=== PATIENT | female | born 1985 | race Caucasian/White ===

== ENCOUNTER 2021-01-28 15:29 | Inpatient (IN) | payer OTHER, MEDICAID, SELFPAY ==
[2021-01-28] VITALS (12 sets, daily range): BP systolic 98–120; BP diastolic 64–87; PULSE 84–132; RESP 12–16; TEMP 35.7–36.7; O2SAT 95–99
--- NOTE | 2021-01-28 15:43 | DI.US.S_ITS ---
PROCEDURE: US OB BIOPHYSICAL PROFILE INDICATIONS: no care aging size OUTSIDE/PRIOR DATING DATA: Last menstrual period (LMP): Not known. LMP-based estimated date of delivery (ALLIE): Not known. First dating scan (date and location): 01/28/2021. Estimated date of delivery (ALLIE) from first dating scan: 03/20/2021. TECHNIQUE: Real-time scanning was performed of the fetus, with image documentation and biometric measurements. Biophysical profile was also obtained. COMPARISON: None. FINDINGS: General: A single living intrauterine gestation is present. Presentation: Vertex Placenta: Placental position is anterior, without previa. Markedly heterogeneous placental echotexture is seen with multiple hypoechoic areas throughout placenta which could represent venous lakes. Amniotic fluid index: Not measured cm, normal range is 5-24 cm. heart rate: 118 beats per minute. Maternal cervical canal: Not well seen. biometrics: Biparietal diameter: 8.7 cm, 35 weeks, 0 day Head circumference: 30.6 cm, 34 weeks, 0 day Abdominal circumference: 28.1 cm, 32 weeks, 1 day Femur length: 5.7 cm, 29 weeks, 5 days Estimated gestational age from initial scan: not applicable. Composite gestational age from present scan: 32 weeks, 5 days Estimated weight and percentile: 1842 grams. Measurement variability for biometric dating: +/- 7 days from 14 weeks to 15 weeks 6 days gestation, +/- 10 days from 16 weeks to 21 weeks 6 days gestation, +/- 2 weeks from 22 weeks to 27 weeks 6 days gestation, +/- 3 weeks for 28 weeks gestation or later. weight reference: 4500 g or EFW >90/95% is considered macrosomia or large for gestational age. EFW <10% is small for gestational age. EFW 5% or less is considered intra-uterine growth restriction. IMPRESSION: 1. Single live intrauterine with fetus in vertex presentation. heart rate is 118 beats per minute. KANWAL is not measured on this study. 2. Estimated gestational age based on current study is 32 weeks, 5 days. 3. Estimated weight is 1842 grams. 4. Heterogeneous echotexture throughout placenta with internal hypoechoic areas which may represent venous Wells. No gross placenta previa or abruption. Dictated by: Bruno Rios M.D. on 01/28/2021 at 17:14 Approved by: Bruno Rios M.D. on 01/28/2021 at 17:18
[2021-01-28 16:13] LABS: Basophils Absolute Auto 100 /uL (0-100); Basophils Percent Auto 0.5 % (0-2); Eosinophils Absolute Auto 100 /uL (0-450); Eosinophils Percent Auto 0.7 % (2-4); Hematocrit 22.3 % (36-46); Hemoglobin 7.6 g/dL (12.0-16.0); Lymphocytes Absolute Auto 1300 /uL (1100-4500); Lymphocytes Percent Auto 11.9 % (25-40); Mean Corpuscular HGB Conc 34.1 % (30-36); Mean Corpuscular Hemoglobin 30.2 PG (26-34); Mean Corpuscular Volume 88.5 fL (80-100); Monocytes Absolute Auto 700 /uL (0-900); Monocytes Percent Auto 6.5 % (3-14); Neutrophils Absolute Auto 9100 /uL (1500-7000); Neutrophils Percent Auto 80.4 % (50-75); Platelet Count 52 X10^3/uL (150-400); Red Blood Cell Count 2.52 X10^6/uL (4.0-5.2); Red Cell Distribution Width 13.3 % (11.6-14.8); White Blood Cell Count 11.3 X10^3/uL (4.5-11.0)
[2021-01-28] MEDS: BETAMETHASONE 30 MG/5 ML MDV 12 MG IM (16:15)
--- NOTE | 2021-01-28 16:22 | PM.PREOP ---
Pre-operative Note COVID-19 COVID-19 status: Result pending Result date/Date tested (Pos, Neg/Pending): 01/28/21 Interval Note History & Physical reviewed/Exam performed by Physician: No Changes to H&P: No H&P completed within 30 days and has changed as indicated here:: This patient is a 35-year-old para 4 presenting at 32 weeks 6 days by her only visit, suspicion of placental abruption in the setting of methamphetamine use. Patient with category 3 tracing unresponsive to initial efforts at resuscitation, informed consent for emergent section obtained. Given maternal appearance and affect in high risk maternal status, CBC, IV access obtained prior to section, anesthesia, operating room, pediatrics teams organized in order to facilitate section and resuscitation while doing what we can to assure maternal safety. Proceeding to operating room with out type and screen as lab reports that this will take further 30 minutes. High suspicion for potential DIC given initial CBC results. Informed consent obtained as able given patient's recent use of intoxicants.
[2021-01-28] MEDS: CEFAZOLIN 2 GM/100 ML FROZ.PIGGY IV (16:55)
[2021-01-28 17:14] LABS: COVID19 - ADMIT (NP swab/PCR) Negative (Negative)
--- NOTE | 2021-01-28 17:14 | SUR.OPER ---
Supine on padded OR bed, head on pillow, arms secured on padded arm boards at <90 degrees abduction, legs uncrossed, safety belt at thigh, tape over blanket over lower legs.
[2021-01-28 17:46] LABS: Add Manual Diff / Slide Review SLIDE REVIEW
[2021-01-28 17:47] LABS: Platelet Estimate Decreased on smear; RBC Morphology Normal Morphology
[2021-01-28 17:57] LABS: UR Morphine/Opiate cutoff 300 Negative (Negative); Ur Creatinine Normal (Normal); Ur Specific Gravity Normal (Normal); Urine Amphetamines Positive (Negative); Urine Barbiturates Negative (Negative); Urine Benzodiazepines Negative (Negative); Urine Cocaine Negative (Negative); Urine MDMA Negative (Negative); Urine Methadone Negative (Negative); Urine Methamphetamines Positive (Negative); Urine Oxycodone Negative (Negative); Urine Phencyclidine Negative (Negative); Urine Tetrahydrocannabinol Negative (Negative); Urine Tricyclic Antidepressant Negative (Negative); Urine pH Normal (Normal)
[2021-01-28 18:09] LABS: Lactate Dehydrogenase 1501 U/L (313-618); Uric Acid 5.2 mg/dL (2.5-6.2)
[2021-01-28] MEDS: OXYCODONE IR 5 MG TABLET PO (18:09)
[2021-01-28 18:10] LABS: Alanine Aminotransferase 18 IU/L (<35); Albumin 2.7 g/dL (3.5-5.0); Albumin Globulin Ratio 1.1 (1.0-2.8); Alkaline Phosphatase 187 U/L (38-126); Aspartate Aminotransferase 61 IU/L (14-36); BUN Creatinine Ratio 11.9 (6-22); Bilirubin Total 1.2 mg/dL (0.2-1.3); Blood Urea Nitrogen 25 mg/dL (7-17); Calcium 8.6 mg/dL (8.4-10.2); Carbon Dioxide 21 mmol/L (22-32); Chloride 107 mmol/L (98-107); Estimated Glomerular Filt Rate 26.8 mL/min (>60); Globulin 2.5 g/dL (1.7-4.1); Glucose 88 mg/dL (70-100); HEMOLYSIS < 15 (0-50); Potassium 4.3 mmol/L (3.4-5.1); Sodium 131 mmol/L (137-145); Total Protein 5.2 g/dL (6.3-8.2)
[2021-01-28] MEDS: fentaNYL 100 MCG/2 ML INJ IV ×2 (18:10→18:15)
--- NOTE | 2021-01-28 18:21 | SUR.OPER ---
TRANSPORT TEAM TO OR 4 AT 1745.CARE OF INFANT TAKEN OVER BY THEM. INFANT DELIVERED AT 1704.
--- NOTE | 2021-01-28 19:16 | P.OP_ITS ---
Operative Date/Time/Diagnoses Date of procedure: 01/28/21 Time of procedure: 17:00 Pre-op diagnosis: placental abruption, methamphetamine hdz Post-op diagnosis: same Procedure & Clinicians Same procedure as scheduled: Yes Surgeon: Pat Conti Laboratory Technical Specialist: Gayathri Parisi Reason for Laboratory Technical Specialist: Assistance with emergent section, management of placental abruption and anticipated coagulopathy Anesthesia Type: General Operative Notes Findings: male in cephalic presentation, apgars 0, 0, and 0. Normal ovaries bilaterally. Cou[place] uterus. On entry, approx. 1000ccs of consolidated, dark clot and 2/3 abrupted anterior placenta. Minimal ongoing liquid bleeding. Specimen(s): cord blood and cord pH Intraoperative meds administered: Acetaminophen and Pitocin Applied: Catheter Estimated Blood Loss (mL): 1,500 Procedure in detail: EBL: 1500ccs Fluids: 1500ccs LR UOP: unknown, sample sent for u tox Called to bedside to assist family practitioner. This patient is a 35yo P4 with one visit 2 weeks ago, establishing dating of 32+6, with otherwise no care. Patient eventually admitted to copious methamphetamine use, reported that she had noticed contractions early this AM, absent movement for a while, increasing uterine pain x4 hours prior to presentation. On admission, cat 3 EFM with absent variability with intermittent late decelerations noted, resuscitative measures undertaken immediately. IV access obtained, type and screen, CBC obtained and sent to stat, after elevated blood pressures preeclampsia labs and coags added to order set. Patient intermittently uncooperative with IV access, rapid COVID screen, declined to produce sample for U tox, visibly intoxicated. Given course over 10 05- of admission, patient was made to organized emergency section safest method possible. Betamethasone administered, anesthesia, OR, pediatrics teams notified, 2nd large-bore IV obtained. Discussed risk of hemorrhage, infection, damage to bowel bladder, danger with future pregnancies discussed. Informed consent obtained as able. Patient joined by father of baby shortly prior to section, father of baby similarly affected. The decision was made to take the patient for section emergency as soon as a CBC and adequate IV access could be obtained to facilitate maternal safety, and to initiate a team for resuscitation and the NICU transport. Procedures: The patient was taken to the operating room where she was prepped and draped in the dorsal supine position with a leftward tilt prior to obtaining emergent general anesthesia. A Pfannenstiel skin incision was made with a scalpel and carried through to the underlying layer of fascia. The fascia was incised in the midline and the incision extended laterally bluntly. The superior aspect of this incision was grasped with Sharad clamps, elevated, and the underlying rectus muscles dissected off bluntly and with the curved Olivera scissors. Attention was then turned to the inferior aspect of this incision which, in a similar fashion, was grasped, tented up with the Sharad clamps, and the rectus muscles dissected off bluntly and with the curved Olivera scissors. The rectus muscles were then in the midline, and the peritoneum identified, tented up, and entered sharply with Metzenbaum scissors. The peritoneal incision was extended superiorly and inferiorly with good visualization of the bladder. The bladder blade was inserted and the vesicouterine peritoneum identified, grasped with pickups, and entered sharply with the Metzenbaum scissors. This incision was extended laterally, and the bladder flap created digitally. The bladder blade was then reinserted and the lower uterine segment incised in transverse fashion with the scalpel. The uterine incision was bluntly extended laterally. The bladder blade was removed, and the infant's head delivered atraumatically along with bloody amniotic fluid and copious amounts of consolidated clot. The cord was immediately clamped and cut, the handed to the waiting Pediatrics team, and the placenta removed manually. All told, approximately 1000 cc of consolidated, dark was removed along with the placenta. Notably, minimal ongoing bright red bleeding was noted. The uterus was exteriorized and cleared of all clots and debris. The uterine incision was repaired with 1-0 chromic in a running, locked fashion and a 2nd layer of the same suture was used to obtain excellent hemostasis. The uterus was returned to the abdomen, and the gutters were cleared of all clots and debris. The bladder flap was closed with 2-0 Vicryl in a running fashion, the peritoneum was closed with 3-0 Vicryl, and the fascia reapproximated with 0 Vicryl in a running fashion. The subcutaneous layer was placed with 3 0 Vicryl in an interrupted fashion and the skin was closed with 4-0 biosyn in a running fashion. Throughout, minimal bleeding was noted, though what was noted was thin and watery, concerning for DIC. Hemostasis was achieved with pressure and Bovie. Sponge lap and needle counts were correct x2. 2 g of Ancef were given at commencement of the case. The patient was taken to the recovery room in stable condition, with mild to moderate lochia and stable vitals signs. Complications: other ( rescusitation) [place] Baby 1: Gender: Male Presentation: vertex Position: Left Occiput Anterior Placental Delivery Description: Manual Removal Cord Vessel Description: 3 Vessels score (1 min): 0 score (5 min): 0 Narrative: See resuscitation note Post-operative Condition: stable Disposition: PACU Aftercare: routine postop (serial CBCs, close monitoring of VS and bleeding)
--- NOTE | 2021-01-28 19:22 | PM.OBHP.1 ---
OB HPI Date/Time Date of admission: 01/28/21 Date Patient Seen: 01/28/21 Time Patient Seen: 15:30 History of Present Condition Chief complaint: : 5 Para: 4 Estimated Date of Delivery: 03/19/21 Estimated Gestational Age (weeks): 32w6d Narrative: Carolina Sharma is a 35 year old at 32 weeks and 6 days gestation presenting with contractions since 5 this morning. Patient has not had care with the exception of one ultrasound in [place] 2 weeks ago which provided in ALLIE of 03/19/21. She is unsure when she last felt the baby move. This morning she was feeling painful so took a bath. Contractions subsided then picked up throughout the rest of the day. Denies leaking or bleeding. Denies headache or edema. Denies drug use however states she use drugs when she was in high school. Currently uses marijuana and cigarettes only. OB history: 5 prior vaginal deliveries all at term. She states she was induced for preeclampsia with one of them. Indications Operative indications ( section): distress History of Present care: limited care (One visit with ultrasound 2 weeks ago) Dating criteria: based on 3rd trimester US only Obstetrical complications: none Medical complications: none Prior (ies) History: 4 prior spontaneous vaginal deliveries at term Evaluation Evaluation Baseline heart rate: 120 Variability: Absent (0-2) monitor accelerations: Absent Monitor Decelerations: Late Contraction Frequency (minutes): 2 Uterine Contraction Intensity: Mild Category of Tracing: Non-reactive Status: Category lll Cervical dilation (cm): 2 Cervical effacement (%): 50 station: -1 Laboratory results: Laboratory Tests 01/28/21 01/28/21 01/28/21 15:47 15:50 15:50 WBC 11.3 H RBC 2.52 L Hgb 7.6 L Hct 22.3 L MCV 88.5 MCH 30.2 MCHC 34.1 RDW 13.3 Plt Count 52 L Neut % (Auto) 80.4 H Lymph % (Auto) 11.9 L Meeker % (Auto) 6.5 Eos % (Auto) 0.7 L Baso % (Auto) 0.5 Neut # (Auto) 9100 H Lymph # (Auto) 1300 Meeker # (Auto) 700 Eos # (Auto) 100 Baso # (Auto) 100 Platelet Estimate Decreased on smear RBC Morphology Normal morphology Sodium 131 L Potassium 4.3 Chloride 107 Carbon Dioxide 21 L BUN 25 H Creatinine 2.10 H Estimated GFR 26.8 L BUN/Creatinine Ratio 11.9 Glucose 88 Uric Acid Calcium 8.6 Total Bilirubin 1.2 AST 61 H ALT 18 Alkaline Phosphatase 187 H Lactate Dehydrogenase Total Protein 5.2 L Albumin 2.7 L Globulin 2.5 Albumin/Globulin Ratio 1.1 U Opiates 300ng/mL cut Ur Oxycodone Screen Urine Methadone Screen Ur Barbiturates Screen U Tricyclic Antidepress Ur Phencyclidine Scrn Ur Amphetamines Screen U Methamphetamines Scrn Ur MDMA Scrn (Ecstasy) U Benzodiazepines Scrn Urine Cocaine Screen U Marijuana (THC) Screen SARS-CoV-2 (PCR) Negative Blood Type Antibody Screen Antibody Identification Crossmatch 01/28/21 01/28/21 01/28/21 15:50 15:55 17:35 WBC RBC Hgb Hct MCV MCH MCHC RDW Plt Count Neut % (Auto) Lymph % (Auto) Meeker % (Auto) Eos % (Auto) Baso % (Auto) Neut # (Auto) Lymph # (Auto) Meeker # (Auto) Eos # (Auto) Baso # (Auto) Platelet Estimate RBC Morphology Sodium Potassium Chloride Carbon Dioxide BUN Creatinine Estimated GFR BUN/Creatinine Ratio Glucose Uric Acid 5.2 Calcium Total Bilirubin AST ALT Alkaline Phosphatase Lactate Dehydrogenase 1501 H Total Protein Albumin Globulin Albumin/Globulin Ratio U Opiates 300ng/mL cut Negative Ur Oxycodone Screen Negative Urine Methadone Screen Negative Ur Barbiturates Screen Negative U Tricyclic Antidepress Negative Ur Phencyclidine Scrn Negative Ur Amphetamines Screen Positive H U Methamphetamines Scrn Positive H Ur MDMA Scrn (Ecstasy) Negative U Benzodiazepines Scrn Negative Urine Cocaine Screen Negative U Marijuana (THC) Screen Negative SARS-CoV-2 (PCR) Blood Type A Negative Antibody Screen Positive Antibody Identification Anti-D Crossmatch See Detail [facility] Medical History AMA (advanced maternal age) multigravida 35+ Anemia Anxiety Blood type, Rh negative Migraine Ovarian cyst Pre-eclampsia (~2004) SAB (spontaneous ) Smoker (spontaneous vaginal delivery) (~06/21/05) (spontaneous vaginal delivery) (~08/10/10) (spontaneous vaginal delivery) (~09/13/14) (spontaneous vaginal delivery) (~06/27/16) Surgical History [place] teeth extracted Family History Mother Cancer Breast cancer Father Hypertension Migraine Grandmother Cancer Breast cancer Grandfather Cancer Lung cancer Grandmother Myocardial infarction Acute alcohol abuse Grandfather Old age Social History marital status: unmarried,living together number of children: 4 household members: significant other, children and other lives independently: No pets and animals: Yes (X 1 cat : mostly outdoors) occupational status: employed current occupational exposures/hazards: Yes special soren needs: No Smoking Status: Current every day smoker Tobacco: How many years used: 20 quit status: considering quitting second hand exposure: Yes alcohol intake: former substance use type: does not use Meds Home Medications and Allergies Home Medications Medication Instructions Recorded Confirmed Type prenat.vits,jose,thn-cwil-ozytc 1 tab PO DAILY 11/14/20 01/28/21 History Allergies Allergy/AdvReac Type Severity Reaction Status Date / Time No Known Drug Allergies Allergy Verified 11/14/20 15:21 Exam Vital Signs (past 8 hours): - 01/28/21 17:50 01/28/21 17:55 01/28/21 18:00 Temperature 96.8 F L 96.8 F L 97.0 F L Pulse Rate 89 86 84 Respiratory Rate 12 14 12 Blood Pressure 109/67 120/87 114/82 Pulse Oximetry 99 99 99 01/28/21 18:05 01/28/21 18:30 01/28/21 18:37 Temperature 97 F L 97.0 F L Pulse Rate 101 H 120 H 132 H Respiratory Rate 14 12 13 Blood Pressure 98/64 116/87 117/83 Pulse Oximetry 98 98 98 01/28/21 18:40 Temperature 97.0 F L Pulse Rate 110 H Respiratory Rate 16 Blood Pressure 118/85 Pulse Oximetry 95 Oxygen Delivery Method Nasal Cannula Oxygen Flow Rate 1 Narrative Exam Narrative: Initial vitals in the center with temperature 35.9? blood pressure 158/103 heart rate 84, repeat blood pressure 155/102 with heart rate of 83 Const General: acute distress (Appears uncomfortable lying in bed) and intoxicated appearing Nutritional Appearance: average body habitus HENIA Head: normal to inspection Ears: hearing grossly normal bilaterally Eyes General: appearance normal, both eyes and all related structures Neck Neck: normal visual inspection Resp Effort & Inspection: normal respiratory effort Auscultation: clear to auscultation bilaterally Cardio Rate: regular rate Rhythm: regular rhythm Heart Sounds: no murmurs GI Other: Gravid External Female Exam: normal external appearance Back/Spine/Pelvis Back: normal to inspection Skin General: no rashes or lesions noted Extrem General: normal to inspection and no pedal edema Objective Labs Result Diagrams: 01/28/21 15:50 01/28/21 15:50 Labs: Laboratory Results - last 24 hr 01/28/21 01/28/21 01/28/21 15:47 15:50 15:50 WBC 11.3 H RBC 2.52 L Hgb 7.6 L Hct 22.3 L MCV 88.5 MCH 30.2 MCHC 34.1 RDW 13.3 Plt Count 52 L Neut % (Auto) 80.4 H Lymph % (Auto) 11.9 L Meeker % (Auto) 6.5 Eos % (Auto) 0.7 L Baso % (Auto) 0.5 Neut # (Auto) 9100 H Lymph # (Auto) 1300 [place] # (Auto) 700 Eos # (Auto) 100 Baso # (Auto) 100 Platelet Estimate Decreased on smear RBC Morphology Normal morphology Sodium 131 L Potassium 4.3 Chloride 107 Carbon Dioxide 21 L BUN 25 H Creatinine 2.10 H Estimated GFR 26.8 L BUN/Creatinine Ratio 11.9 Glucose 88 Uric Acid Calcium 8.6 Total Bilirubin 1.2 AST 61 H ALT 18 Alkaline Phosphatase 187 H Lactate Dehydrogenase Total Protein 5.2 L Albumin 2.7 L Globulin 2.5 Albumin/Globulin Ratio 1.1 U Opiates 300ng/mL cut Ur Oxycodone Screen Urine Methadone Screen Ur Barbiturates Screen U Tricyclic Antidepress Ur Phencyclidine Scrn Ur Amphetamines Screen U Methamphetamines Scrn Ur MDMA Scrn (Ecstasy) U Benzodiazepines Scrn Urine Cocaine Screen U Marijuana (THC) Screen SARS-CoV-2 (PCR) Negative Blood Type Antibody Screen Antibody Identification Crossmatch 01/28/21 01/28/21 01/28/21 15:50 15:55 17:35 WBC RBC Hgb Hct MCV MCH MCHC RDW Plt Count Neut % (Auto) Lymph % (Auto) Meeker % (Auto) Eos % (Auto) Baso % (Auto) Neut # (Auto) Lymph # (Auto) [place] # (Auto) Eos # (Auto) Baso # (Auto) Platelet Estimate RBC Morphology Sodium Potassium Chloride Carbon Dioxide BUN Creatinine Estimated GFR BUN/Creatinine Ratio Glucose Uric Acid 5.2 Calcium Total Bilirubin AST ALT Alkaline Phosphatase Lactate Dehydrogenase 1501 H Total Protein Albumin Globulin Albumin/Globulin Ratio U Opiates 300ng/mL cut Negative Ur Oxycodone Screen Negative Urine Methadone Screen Negative Ur Barbiturates Screen Negative U Tricyclic Antidepress Negative Ur Phencyclidine Scrn Negative Ur Amphetamines Screen Positive H U Methamphetamines Scrn Positive H Ur MDMA Scrn (Ecstasy) Negative U Benzodiazepines Scrn Negative Urine Cocaine Screen Negative U Marijuana (THC) Screen Negative SARS-CoV-2 (PCR) Blood Type A Negative Antibody Screen Positive Antibody Identification Anti-D Crossmatch See Detail Assessment and Plan Assessment and Plan Assessment and Plan narrative: 35-year-old at 32 weeks and 6 days gestation in labor and obviously under the influence of substances. She has had one visit this which established her due date of March 19 but otherwise has not had care. Denies recent drug use. Upon arrival to the center she was found to be 2 cm dilated with frequent contractions and a category [address] Conti, Seasonal Package Handler, was readily available in the center to provide consultation. Patient was given a fluid bolus without improvement in status. She was then given betamethasone and counseled on the need for an emergency due to distress. Dr. Conti performed a bedside ultrasound which showed vertex presentation and concern for contain placental abruption. Dr. Conti consented the patient for section. labs were drawn. GBS pending, COVID pending. Patient was found to be severely anemic and thrombocytopenic raising concern for HELLP syndrome given elevated blood pressures. Patient will be taken for emergent due to distress and placental abruption. Unfortunately anesthesia will be with general anesthesia due to thrombocytopenia. UDS will be collected with catheter placement in the OR. NICU transfer team has been notified and is on their way. Pediatrics will be at the delivery.
[2021-01-28 20:50] LABS: Strep Grp B PCR NEG for Grp B Strep
[2021-01-28 21:01] LABS: Add Manual Diff / Slide Review NO; Basophils Absolute Auto 0 /uL (0-100); Basophils Percent Auto 0.3 % (0-2); Eosinophils Absolute Auto 0 /uL (0-450); Eosinophils Percent Auto 0.2 % (2-4); Lymphocytes Absolute Auto 900 /uL (1100-4500); Lymphocytes Percent Auto 6.5 % (25-40); Mean Corpuscular HGB Conc 34.8 % (30-36); Mean Corpuscular Hemoglobin 30.6 PG (26-34); Monocytes Absolute Auto 200 /uL (0-900); Monocytes Percent Auto 1.6 % (3-14); Neutrophils Absolute Auto 13100 /uL (1500-7000); Neutrophils Percent Auto 91.4 % (50-75); Platelet Count 45 X10^3/uL (150-400); Red Blood Cell Count 1.75 X10^6/uL (4.0-5.2); Red Cell Distribution Width 13.1 % (11.6-14.8); White Blood Cell Count 14.3 X10^3/uL (4.5-11.0)
[2021-01-28 21:04] LABS: Hepatitis B Surface Antigen NEGATIVE s/c (NEGATIVE)
[2021-01-28 21:07] LABS: Hematocrit 15.4 % (36-46); Hemoglobin 5.3 g/dL (12.0-16.0)
[2021-01-28 21:13] LABS: Alanine Aminotransferase 15 IU/L (<35); Alkaline Phosphatase 139 U/L (38-126); Aspartate Aminotransferase 40 IU/L (14-36); BUN Creatinine Ratio 11.9 (6-22); Bilirubin Total 0.3 mg/dL (0.2-1.3); Blood Urea Nitrogen 28 mg/dL (7-17); Calcium 7.8 mg/dL (8.4-10.2); Carbon Dioxide 21 mmol/L (22-32); Chloride 107 mmol/L (98-107); Estimated Glomerular Filt Rate 23.5 mL/min (>60); Globulin 2.1 g/dL (1.7-4.1); Glucose 122 mg/dL (70-100); HEMOLYSIS < 15 (0-50); Potassium 4.8 mmol/L (3.4-5.1); Sodium 131 mmol/L (137-145); Total Protein 4.1 g/dL (6.3-8.2)
[2021-01-28 21:20] LABS: INR 1.2 (0.9-1.3); Prothrombin Time 13.3 SECONDS (10.1-12.7)
[2021-01-28 21:23] LABS: PTT Partial Thromboplastin Tim 28 SECONDS (26.4-36.2)
[2021-01-28 21:25] LABS: HIV 1 & 2 Ab/Ag 4th Gen Combo NEGATIVE (NEGATIVE); Hep C Virus Ab w/Reflex Quant NEGATIVE s/c (NEGATIVE)
--- NOTE | 2021-01-28 21:41 | P.PNOB_ITS ---
Subjective - OB Subjective Patient comments: incisional pain Date Patient Seen: 01/28/21 Time Patient Seen: 21:41 Interval history: This patient is 3 hours s/p primary section under general anesthesia in the setting of placental abruption, cat 3 EFM, no care, and recent methamphetamine use. The patient's affect is largely similar to preoperatively, and she is able to answer questions coherently and responds appropriately to stimuli. Discussed with patient expected hgb drop postoperatively, patient previously consented to blood transfusion which will be initiated now. Exam Vital Signs (past 8 hours): - 01/28/21 17:50 01/28/21 17:55 01/28/21 18:00 Temperature 96.8 F L 96.8 F L 97.0 F L Pulse Rate 89 86 84 Respiratory Rate 12 14 12 Blood Pressure 109/67 120/87 114/82 Pulse Oximetry 99 99 99 01/28/21 18:05 01/28/21 18:30 01/28/21 18:37 Temperature 97 F L 97.0 F L Pulse Rate 101 H 120 H 132 H Respiratory Rate 14 12 13 Blood Pressure 98/64 116/87 117/83 Pulse Oximetry 98 98 98 01/28/21 18:40 01/28/21 21:40 Temperature 97.0 F L 96.2 F L Pulse Rate 110 H 100 H Respiratory Rate 16 14 Blood Pressure 118/85 102/76 Pulse Oximetry 95 Oxygen Delivery Method Nasal Cannula Oxygen Flow Rate 1 Const General: cooperative Orientation: alert and oriented x3 Other: pale GI Inspection: non-distended Palpation: soft and tender (mild) Other: lochia mild Skin General: no rashes or lesions noted Extrem General: normal to inspection Objective Labs Result Diagrams: 01/29/21 09:35 01/29/21 09:35 Labs: Laboratory Results - last 24 hr 01/28/21 01/28/21 01/28/21 15:47 15:50 15:50 WBC 11.3 H RBC 2.52 L Hgb 7.6 L Hct 22.3 L MCV 88.5 MCH 30.2 MCHC 34.1 RDW 13.3 Plt Count 52 L Neut % (Auto) 80.4 H Lymph % (Auto) 11.9 L [place] % (Auto) 6.5 Eos % (Auto) 0.7 L Baso % (Auto) 0.5 Neut # (Auto) 9100 H Lymph # (Auto) 1300 [place] # (Auto) 700 Eos # (Auto) 100 Baso # (Auto) 100 Platelet Estimate Decreased on smear RBC Morphology Normal morphology Sodium 131 L Potassium 4.3 Chloride 107 Carbon Dioxide 21 L BUN 25 H Creatinine 2.10 H Estimated GFR 26.8 L BUN/Creatinine Ratio 11.9 Glucose 88 Uric Acid Calcium 8.6 Total Bilirubin 1.2 AST 61 H ALT 18 Alkaline Phosphatase 187 H Lactate Dehydrogenase Total Protein 5.2 L Albumin 2.7 L Globulin 2.5 Albumin/Globulin Ratio 1.1 U Opiates 300ng/mL cut Ur Oxycodone Screen Urine Methadone Screen Ur Barbiturates Screen U Tricyclic Antidepress Ur Phencyclidine Scrn Ur Amphetamines Screen U Methamphetamines Scrn Ur MDMA Scrn (Ecstasy) U Benzodiazepines Scrn Urine Cocaine Screen U Marijuana (THC) Screen SARS-CoV-2 (PCR) Negative Hep Bs Antigen Hepatitis C Antibody HIV 1&2 Ab/P24 Ag 4thGn Rubella Antibody Group B Strep (PCR) Blood Type Antibody Screen Antibody Identification Crossmatch 01/28/21 01/28/21 01/28/21 15:50 15:50 15:50 WBC RBC Hgb Hct MCV MCH MCHC RDW Plt Count Neut % (Auto) Lymph % (Auto) [place] % (Auto) Eos % (Auto) Baso % (Auto) Neut # (Auto) Lymph # (Auto) [place] # (Auto) Eos # (Auto) Baso # (Auto) Platelet Estimate RBC Morphology Sodium Potassium Chloride Carbon Dioxide BUN Creatinine Estimated GFR BUN/Creatinine Ratio Glucose Uric Acid 5.2 Calcium Total Bilirubin AST ALT Alkaline Phosphatase Lactate Dehydrogenase 1501 H Total Protein Albumin Globulin Albumin/Globulin Ratio U Opiates 300ng/mL cut Ur Oxycodone Screen Urine Methadone Screen Ur Barbiturates Screen U Tricyclic Antidepress Ur Phencyclidine Scrn Ur Amphetamines Screen U Methamphetamines Scrn Ur MDMA Scrn (Ecstasy) U Benzodiazepines Scrn Urine Cocaine Screen U Marijuana (THC) Screen SARS-CoV-2 (PCR) Hep Bs Antigen Negative Hepatitis C Antibody Negative HIV 1&2 Ab/P24 Ag 4thGn Negative Rubella Antibody 38.0 Group B Strep (PCR) Neg for grp b strep Blood Type Antibody Screen Antibody Identification Crossmatch 01/28/21 01/28/21 01/28/21 15:55 17:35 20:34 WBC 14.3 H RBC 1.75 L Hgb 5.3 L* Hct 15.4 L* MCV 88.0 MCH 30.6 MCHC 34.8 RDW 13.1 Plt Count 45 L Neut % (Auto) 91.4 H Lymph % (Auto) 6.5 L [place] % (Auto) 1.6 L Eos % (Auto) 0.2 L Baso % (Auto) 0.3 Neut # (Auto) 68443 H Lymph # (Auto) 900 L [place] # (Auto) 200 Eos # (Auto) 0 Baso # (Auto) 0 Platelet Estimate RBC Morphology Sodium Potassium Chloride Carbon Dioxide BUN Creatinine Estimated GFR BUN/Creatinine Ratio Glucose Uric Acid Calcium Total Bilirubin AST ALT Alkaline Phosphatase Lactate Dehydrogenase Total Protein Albumin Globulin Albumin/Globulin Ratio U Opiates 300ng/mL cut Negative Ur Oxycodone Screen Negative Urine Methadone Screen Negative Ur Barbiturates Screen Negative U Tricyclic Antidepress Negative Ur Phencyclidine Scrn Negative Ur Amphetamines Screen Positive H U Methamphetamines Scrn Positive H Ur MDMA Scrn (Ecstasy) Negative U Benzodiazepines Scrn Negative Urine Cocaine Screen Negative U Marijuana (THC) Screen Negative SARS-CoV-2 (PCR) Hep Bs Antigen Hepatitis C Antibody HIV 1&2 Ab/P24 Ag 4thGn Rubella Antibody Group B Strep (PCR) Blood Type A Negative Antibody Screen Positive Antibody Identification Anti-D Crossmatch See Detail 01/28/21 20:34 WBC RBC Hgb Hct MCV MCH MCHC RDW Plt Count Neut % (Auto) Lymph % (Auto) [place] % (Auto) Eos % (Auto) Baso % (Auto) Neut # (Auto) Lymph # (Auto) [place] # (Auto) Eos # (Auto) Baso # (Auto) Platelet Estimate RBC Morphology Sodium 131 L Potassium 4.8 Chloride 107 Carbon Dioxide 21 L BUN 28 H Creatinine 2.35 H Estimated GFR 23.5 L BUN/Creatinine Ratio 11.9 Glucose 122 H Uric Acid Calcium 7.8 L Total Bilirubin 0.3 AST 40 H ALT 15 Alkaline Phosphatase 139 H Lactate Dehydrogenase Total Protein 4.1 L Albumin 2.0 L Globulin 2.1 Albumin/Globulin Ratio 1.0 U Opiates 300ng/mL cut Ur Oxycodone Screen Urine Methadone Screen Ur Barbiturates Screen U Tricyclic Antidepress Ur Phencyclidine Scrn Ur Amphetamines Screen U Methamphetamines Scrn Ur MDMA Scrn (Ecstasy) U Benzodiazepines Scrn Urine Cocaine Screen U Marijuana (THC) Screen SARS-CoV-2 (PCR) Hep Bs Antigen Hepatitis C Antibody HIV 1&2 Ab/P24 Ag 4thGn Rubella Antibody Group B Strep (PCR) Blood Type Antibody Screen Antibody Identification Crossmatch Assessment & Plan Plan day: 0 Comments: This patient is POD#0 s/p pCS under general in the setting of 32 weeks gestation, no care, methamphetamine use, and placental abruption. Patient had preoperatively elevated blood pressures in the setting of methamphetamine use and pain, lab findings concerning for HELLP but unclear given methamphetamine use and effects on labs as well as abruption that had clinically been present for some time. Patient for transfusion of 2x pRBCs now, for dexamethasone per protocol used for low platelets. Coags still pending as not drawn by lab prior to CS, but as vitals and bleeding remain stable and HR is improving, will continue close monitoring rather than FFP or platelet transfusion at this time. For labs q1 hr, ongoing IV fluids, close monitoring of urine output and vitals signs. - 2x pRBCs now - q6 hrs labs- CBC and CMP - dexamethasone IV: 15 mg now, 15 mg in 12 hours, then 10mg q12 hrs x2 doses. - vitals q1 hr - ongoing IV fluids Time Spent With Patient Time: Total time spent is greater than 50% in coordination of care (as documented) at patient's floor/unit and/or counseling patient: Time with patient: 25 - 35 minutes
[2021-01-28] MEDS: SODIUM CHLORIDE 0.9% 1,000 ML 100 ML IV (21:45)
[2021-01-28 21:52] LABS: Fibrinogen 74 mg/dL (211-428)
[2021-01-29] VITALS (10 sets, daily range): BP systolic 118–146; BP diastolic 84–101; PULSE 76–98; RESP 14–16; TEMP 35.9–36.6
[2021-01-29] MEDS: OXYCODONE IR 10 MG TABLET PO ×4 (01:11→19:53)
[2021-01-29 05:00] LABS: Basophils Absolute Auto 0 /uL (0-100); Basophils Percent Auto 0.1 % (0-2); Eosinophils Absolute Auto 0 /uL (0-450); Hemoglobin 8.4 g/dL (12.0-16.0); Lymphocytes Absolute Auto 1300 /uL (1100-4500); Lymphocytes Percent Auto 7.5 % (25-40); Mean Corpuscular HGB Conc 33.9 % (30-36); Mean Corpuscular Hemoglobin 29.7 PG (26-34); Mean Corpuscular Volume 87.6 fL (80-100); Monocytes Absolute Auto 300 /uL (0-900); Monocytes Percent Auto 1.7 % (3-14); Neutrophils Absolute Auto 15000 /uL (1500-7000); Neutrophils Percent Auto 90.7 % (50-75); Red Blood Cell Count 2.81 X10^6/uL (4.0-5.2); Red Cell Distribution Width 14.4 % (11.6-14.8); White Blood Cell Count 16.6 X10^3/uL (4.5-11.0)
[2021-01-29 05:06] LABS: Alanine Aminotransferase 14 IU/L (<35); Albumin 2.1 g/dL (3.5-5.0); Alkaline Phosphatase 109 U/L (38-126); Aspartate Aminotransferase 38 IU/L (14-36); BUN Creatinine Ratio 12.2 (6-22); Bilirubin Total 0.4 mg/dL (0.2-1.3); Blood Urea Nitrogen 35 mg/dL (7-17); Calcium 7.4 mg/dL (8.4-10.2); Carbon Dioxide 21 mmol/L (22-32); Chloride 106 mmol/L (98-107); Estimated Glomerular Filt Rate 18.7 mL/min (>60); Globulin 2.2 g/dL (1.7-4.1); Glucose 101 mg/dL (70-100); HEMOLYSIS < 15 (0-50); Potassium 4.8 mmol/L (3.4-5.1); Sodium 131 mmol/L (137-145); Total Protein 4.3 g/dL (6.3-8.2)
[2021-01-29 05:11] LABS: Hematocrit 24.7 % (36-46)
[2021-01-29 05:12] LABS: Platelet Count 43 X10^3/uL (150-400)
[2021-01-29 05:13] LABS: Add Manual Diff / Slide Review SLIDE REVIEW
[2021-01-29 05:31] LABS: Fibrinogen 184 mg/dL (211-428)
[2021-01-29] MEDS: LACTATED RINGERS 1,000 ML 100 ML IV ×2 (06:07→07:09)
[2021-01-29 07:23] LABS: Appearance Urine UA SL CLOUDY; Bilirubin Urine UA NEGATIVE (NEGATIVE); Color Urine UA YELLOW; Glucose Urine UA NEGATIVE (Negative); Ketones Urine UA NEGATIVE (NEGATIVE); Leukocyte Esterase Urine UA NEGATIVE (NEGATIVE); Nitrite Urine UA POSITIVE (Negative); Occult Blood Urine UA 3+ (Negative); Protein Urine UA 2+ (Negative); Specific Gravity Urine UA 1.025 (1.000-1.035); Urobilinogen Urine UA 0.2 E.U./dL (0.2)
--- NOTE | 2021-01-29 07:25 | PM.OBPN.1 ---
Subjective - OB Subjective Patient comments: incisional pain baby status: NICU (on vent, unresponsive to stimuli, no respitory effort) Narrative: Patient complains of soreness all over, especially her back. Some incisional pain. Denies headache or vision changes. She received 2 units of PRBCs overnight. Fluids were put on hold during blood transfusion due to one IV. UOP overnight 100 ml of dark urine. Blood pressures mildly elevated 100-140s/70-100s however patient asymptomatic as above. Patient admits to meth use in the days leading up to labor. She states she does not use all the time and not around her kids. Denies using drugs in her prior pregnancies. Her current boyfriend does not know about her drug use and she does not want him to know. Baby remains intubated at [facility] with no neurologic response. Date Patient Seen: 01/29/21 Time Patient Seen: 06:50 Exam Vital Signs (past 8 hours): - 01/29/21 00:22 01/29/21 00:45 01/29/21 00:52 Temperature 96.6 F L 98 F 97 F L Pulse Rate 92 H 90 90 Respiratory Rate 14 15 15 Blood Pressure 124/93 H 127/93 H 127/94 H 01/29/21 01:05 01/29/21 01:08 01/29/21 03:28 Temperature 96.6 F L 96.6 F L 97.1 F L Pulse Rate 76 92 H 90 Respiratory Rate 14 15 16 Blood Pressure 143/101 H 137/98 H 138/100 H Oxygen Delivery Method Nasal Cannula Oxygen Flow Rate 1 Narrative Exam Narrative: General: Awake and alert, no acute distress. Dry lips and dry mucous membranes. HEENT: NCAT, EOMI, moist oral mucosa CV: Regular rate and rhythm, no murmurs, rubs or gallops Lungs: CTAB, no wheezes, rales, or rhonchi Abdomen: Aquacel dressing with minimal drainage. Soft, nontender; bowel tones active; uterus firm 1 cm below umbilicus. Extremities: Warm, no edema bilaterally, 2+ pedal pulses bilaterally Neuro: 2/4 patellar reflexes bilaterally Objective Labs Result Diagrams: 01/29/21 04:25 01/29/21 04:25 Labs: Laboratory Results - last 24 hr 01/28/21 01/28/21 01/28/21 15:47 15:50 15:50 WBC 11.3 H RBC 2.52 L Hgb 7.6 L Hct 22.3 L MCV 88.5 MCH 30.2 MCHC 34.1 RDW 13.3 Plt Count 52 L Neut % (Auto) 80.4 H Lymph % (Auto) 11.9 L [place] % (Auto) 6.5 Eos % (Auto) 0.7 L Baso % (Auto) 0.5 Neut # (Auto) 9100 H Lymph # (Auto) 1300 [place] # (Auto) 700 Eos # (Auto) 100 Baso # (Auto) 100 Platelet Estimate Decreased on smear RBC Morphology Normal morphology PT INR APTT Fibrinogen Sodium 131 L Potassium 4.3 Chloride 107 Carbon Dioxide 21 L BUN 25 H Creatinine 2.10 H Estimated GFR 26.8 L BUN/Creatinine Ratio 11.9 Glucose 88 Uric Acid Calcium 8.6 Total Bilirubin 1.2 AST 61 H ALT 18 Alkaline Phosphatase 187 H Lactate Dehydrogenase Total Protein 5.2 L Albumin 2.7 L Globulin 2.5 Albumin/Globulin Ratio 1.1 U Opiates 300ng/mL cut Ur Oxycodone Screen Urine Methadone Screen Ur Barbiturates Screen U Tricyclic Antidepress Ur Phencyclidine Scrn Ur Amphetamines Screen U Methamphetamines Scrn Ur MDMA Scrn (Ecstasy) U Benzodiazepines Scrn Urine Cocaine Screen U Marijuana (THC) Screen SARS-CoV-2 (PCR) Negative Hep Bs Antigen Hepatitis C Antibody HIV 1&2 Ab/P24 Ag 4thGn Rubella Antibody Group B Strep (PCR) Blood Type Antibody Screen Antibody Identification Crossmatch 01/28/21 01/28/21 01/28/21 15:50 15:50 15:50 WBC RBC Hgb Hct MCV MCH MCHC RDW Plt Count Neut % (Auto) Lymph % (Auto) [place] % (Auto) Eos % (Auto) Baso % (Auto) Neut # (Auto) Lymph # (Auto) [place] # (Auto) Eos # (Auto) Baso # (Auto) Platelet Estimate RBC Morphology PT INR APTT Fibrinogen Sodium Potassium Chloride Carbon Dioxide BUN Creatinine Estimated GFR BUN/Creatinine Ratio Glucose Uric Acid 5.2 Calcium Total Bilirubin AST ALT Alkaline Phosphatase Lactate Dehydrogenase 1501 H Total Protein Albumin Globulin Albumin/Globulin Ratio U Opiates 300ng/mL cut Ur Oxycodone Screen Urine Methadone Screen Ur Barbiturates Screen U Tricyclic Antidepress Ur Phencyclidine Scrn Ur Amphetamines Screen U Methamphetamines Scrn Ur MDMA Scrn (Ecstasy) U Benzodiazepines Scrn Urine Cocaine Screen U Marijuana (THC) Screen SARS-CoV-2 (PCR) Hep Bs Antigen Negative Hepatitis C Antibody Negative HIV 1&2 Ab/P24 Ag 4thGn Negative Rubella Antibody 38.0 Group B Strep (PCR) Neg for grp b strep Blood Type Antibody Screen Antibody Identification Crossmatch 01/28/21 01/28/21 01/28/21 15:55 17:35 20:34 WBC RBC Hgb Hct MCV MCH MCHC RDW Plt Count Neut % (Auto) Lymph % (Auto) [place] % (Auto) Eos % (Auto) Baso % (Auto) Neut # (Auto) Lymph # (Auto) [place] # (Auto) Eos # (Auto) Baso # (Auto) Platelet Estimate RBC Morphology PT 13.3 H INR 1.2 APTT 28 Fibrinogen 74 L* Sodium Potassium Chloride Carbon Dioxide BUN Creatinine Estimated GFR BUN/Creatinine Ratio Glucose Uric Acid Calcium Total Bilirubin AST ALT Alkaline Phosphatase Lactate Dehydrogenase Total Protein Albumin Globulin Albumin/Globulin Ratio U Opiates 300ng/mL cut Negative Ur Oxycodone Screen Negative Urine Methadone Screen Negative Ur Barbiturates Screen Negative U Tricyclic Antidepress Negative Ur Phencyclidine Scrn Negative Ur Amphetamines Screen Positive H U Methamphetamines Scrn Positive H Ur MDMA Scrn (Ecstasy) Negative U Benzodiazepines Scrn Negative Urine Cocaine Screen Negative U Marijuana (THC) Screen Negative SARS-CoV-2 (PCR) Hep Bs Antigen Hepatitis C Antibody HIV 1&2 Ab/P24 Ag 4thGn Rubella Antibody Group B Strep (PCR) Blood Type A Negative Antibody Screen Positive Antibody Identification Anti-D Crossmatch See Detail 01/28/21 01/28/21 01/28/21 20:34 20:34 20:34 WBC 14.3 H RBC 1.75 L Hgb 5.3 L* Hct 15.4 L* MCV 88.0 MCH 30.6 MCHC 34.8 RDW 13.1 Plt Count 45 L Neut % (Auto) 91.4 H Lymph % (Auto) 6.5 L [place] % (Auto) 1.6 L Eos % (Auto) 0.2 L Baso % (Auto) 0.3 Neut # (Auto) 38434 H Lymph # (Auto) 900 L [place] # (Auto) 200 Eos # (Auto) 0 Baso # (Auto) 0 Platelet Estimate RBC Morphology PT INR APTT Fibrinogen Sodium 131 L Potassium 4.8 Chloride 107 Carbon Dioxide 21 L BUN 28 H Creatinine 2.35 H Estimated GFR 23.5 L BUN/Creatinine Ratio 11.9 Glucose 122 H Uric Acid Calcium 7.8 L Total Bilirubin 0.3 AST 40 H ALT 15 Alkaline Phosphatase 139 H Lactate Dehydrogenase Total Protein 4.1 L Albumin 2.0 L Globulin 2.1 Albumin/Globulin Ratio 1.0 U Opiates 300ng/mL cut Ur Oxycodone Screen Urine Methadone Screen Ur Barbiturates Screen U Tricyclic Antidepress Ur Phencyclidine Scrn Ur Amphetamines Screen U Methamphetamines Scrn Ur MDMA Scrn (Ecstasy) U Benzodiazepines Scrn Urine Cocaine Screen U Marijuana (THC) Screen SARS-CoV-2 (PCR) Hep Bs Antigen Hepatitis C Antibody HIV 1&2 Ab/P24 Ag 4thGn Cancelled Rubella Antibody Group B Strep (PCR) Blood Type Antibody Screen Antibody Identification Crossmatch 01/29/21 01/29/21 01/29/21 04:25 04:25 04:25 WBC 16.6 H RBC 2.81 L Hgb 8.4 L Hct 24.7 L MCV 87.6 MCH 29.7 MCHC 33.9 RDW 14.4 Plt Count 43 L Neut % (Auto) 90.7 H Lymph % (Auto) 7.5 L [place] % (Auto) 1.7 L Eos % (Auto) 0.0 L Baso % (Auto) 0.1 Neut # (Auto) 74741 H Lymph # (Auto) 1300 [place] # (Auto) 300 Eos # (Auto) 0 Baso # (Auto) 0 Platelet Estimate RBC Morphology PT INR APTT Fibrinogen 184 L Sodium 131 L Potassium 4.8 Chloride 106 Carbon Dioxide 21 L BUN 35 H Creatinine 2.87 H Estimated GFR 18.7 L BUN/Creatinine Ratio 12.2 Glucose 101 H Uric Acid Calcium 7.4 L Total Bilirubin 0.4 AST 38 H ALT 14 Alkaline Phosphatase 109 Lactate Dehydrogenase Total Protein 4.3 L Albumin 2.1 L Globulin 2.2 Albumin/Globulin Ratio 1.0 U Opiates 300ng/mL cut Ur Oxycodone Screen Urine Methadone Screen Ur Barbiturates Screen U Tricyclic Antidepress Ur Phencyclidine Scrn Ur Amphetamines Screen U Methamphetamines Scrn Ur MDMA Scrn (Ecstasy) U Benzodiazepines Scrn Urine Cocaine Screen U Marijuana (THC) Screen SARS-CoV-2 (PCR) Hep Bs Antigen Hepatitis C Antibody HIV 1&2 Ab/P24 Ag 4thGn Rubella Antibody Group B Strep (PCR) Blood Type Antibody Screen Antibody Identification Crossmatch Assessment & Plan Assessment and Plan (1) S/P : Status: Acute (2) Methamphetamine use: Status: Acute (3) 32 weeks gestation of : Status: Acute Plan day: 1 plan OB: routine postop care Comments: 35-year-old day 1 after emergency for distress and placental abruption. U tox positive for amphetamines yesterday. It is not entirely clear whether she has HELLP syndrome verses DIC with consumption of platelets due to abruption. Blood pressures have been mildly elevated overnight though not severe range and patient is asymptomatic. Hypertension could be due to methamphetamines versus HELLP syndrome. She received 2 units of packed red blood cells overnight with improvement in H&H. Urine output was only 100 mL but she did not receive fluids for a good portion of the night due to blood transfusion. Patient appears very dry on exam as well. She was given a 1 L bolus this morning and is producing some urine so far. I suspect she is very dehydrated. Discussed with Dr. Parisi and Dr. Conti who are following patient. Very much appreciate recommendations. The leading diagnosis is DIC which appears to be resolving with improvement in fibrinogen and stable platelets. Will give a second fluid bolus now due to poor urine output. Labs will be recheck at later this morning and she will be followed closely. remains in the intensive care unit at [facility] with no significant neurologic response on the vent. Time Spent With Patient Time: Total time spent is greater than 50% in coordination of care (as documented) at patient's floor/unit and/or counseling patient: Time with patient: 25 - 35 minutes
[2021-01-29 07:31] LABS: Platelet Estimate Decreased on smear; RBC Morphology Normal Morphology
[2021-01-29 08:04] LABS: RBC Urine 1-5/HPF (0-5/HPF); Squamous Epithelial Cell Urine 10-30 /HPF (0-5/HPF); WBC Urine 1-5/HPF (0-5/HPF)
[2021-01-29 08:05] LABS: Bacteria Urine Many (>30); Granular Casts Urine 1-5/LPF; Hyaline Casts Urine 1-5/LPF
[2021-01-29] MEDS: DOCUSATE 250 MG CAPSULE PO (09:01)
[2021-01-29] MEDS: FERROUS SULFATE 325 MG TABLET PO (09:01)
[2021-01-29 09:42] LABS: Add Manual Diff / Slide Review NO; Basophils Absolute Auto 0 /uL (0-100); Basophils Percent Auto 0.2 % (0-2); Eosinophils Absolute Auto 0 /uL (0-450); Eosinophils Percent Auto 0.1 % (2-4); Hematocrit 21.2 % (36-46); Hemoglobin 7.4 g/dL (12.0-16.0); Lymphocytes Absolute Auto 1500 /uL (1100-4500); Lymphocytes Percent Auto 9.3 % (25-40); Mean Corpuscular HGB Conc 34.6 % (30-36); Mean Corpuscular Volume 86.6 fL (80-100); Monocytes Absolute Auto 400 /uL (0-900); Monocytes Percent Auto 2.7 % (3-14); Neutrophils Absolute Auto 14500 /uL (1500-7000); Neutrophils Percent Auto 87.7 % (50-75); Platelet Count 48 X10^3/uL (150-400); Red Blood Cell Count 2.45 X10^6/uL (4.0-5.2); Red Cell Distribution Width 14.6 % (11.6-14.8); White Blood Cell Count 16.5 X10^3/uL (4.5-11.0)
[2021-01-29 09:55] LABS: Fibrinogen 229 mg/dL (211-428)
[2021-01-29] MEDS: LABETALOL 100 MG TABLET PO ×2 (10:04→21:09)
[2021-01-29 10:07] LABS: Alanine Aminotransferase 16 IU/L (<35); Alkaline Phosphatase 95 U/L (38-126); Aspartate Aminotransferase 37 IU/L (14-36); Bilirubin Total 0.1 mg/dL (0.2-1.3); Blood Urea Nitrogen 37 mg/dL (7-17); Calcium 7.6 mg/dL (8.4-10.2); Carbon Dioxide 20 mmol/L (22-32); Chloride 105 mmol/L (98-107); Estimated Glomerular Filt Rate 17.2 mL/min (>60); Globulin 2.1 g/dL (1.7-4.1); Glucose 123 mg/dL (70-100); HEMOLYSIS < 15 (0-50); Potassium 4.8 mmol/L (3.4-5.1); Sodium 129 mmol/L (137-145); Total Protein 4.1 g/dL (6.3-8.2)
--- NOTE | 2021-01-29 11:07 | PM.OBPN.1 ---
Subjective - OB Subjective Patient comments: incisional pain feeding status: other Narrative: This patient is POD#1 s/p emergent primary section at 32 weeks 6 days, in the setting of placental abruption, cat 3 EFM on presentation, methamphetamine use, DIC, possible PIH vs withdrawal, and no care. THe patient reports abdominal pain with improved control since the evening. Indwelling catheter, patient is tolerating sips without nausea and strongly desires food this AM, mild lochia, no increase in spots of blood on dressing from yesterday. Patient overall improved in affect, more aware and events of yesterday discussed at length. Date Patient Seen: 01/29/21 Time Patient Seen: 07:45 Exam Vital Signs (past 8 hours): - 01/29/21 03:28 01/29/21 10:04 Temperature 97.1 F L Pulse Rate 90 98 H Respiratory Rate 16 Blood Pressure 138/100 H 146/100 H Oxygen Delivery Method Nasal Cannula Oxygen Flow Rate 1 Const General: cooperative, disheveled and intoxicated appearing (improved since yesterday but not absent) Resp Effort & Inspection: normal respiratory effort Auscultation: clear to auscultation bilaterally Cardio Rate: regular rate Rhythm: regular rhythm GI Inspection: non-distended and incision Palpation: soft, No guarding, No rigid and tender Extrem General: normal to inspection Objective Labs Result Diagrams: 01/29/21 09:35 01/29/21 09:35 Labs: Laboratory Results - last 24 hr 01/28/21 01/28/21 01/28/21 15:47 15:50 15:50 WBC 11.3 H RBC 2.52 L Hgb 7.6 L Hct 22.3 L MCV 88.5 MCH 30.2 MCHC 34.1 RDW 13.3 Plt Count 52 L Neut % (Auto) 80.4 H Lymph % (Auto) 11.9 L [place] % (Auto) 6.5 Eos % (Auto) 0.7 L Baso % (Auto) 0.5 Neut # (Auto) 9100 H Lymph # (Auto) 1300 [place] # (Auto) 700 Eos # (Auto) 100 Baso # (Auto) 100 Platelet Estimate Decreased on smear Plt Morphology Comment RBC Morphology Normal morphology PT INR APTT Fibrinogen Sodium 131 L Potassium 4.3 Chloride 107 Carbon Dioxide 21 L BUN 25 H Creatinine 2.10 H Estimated GFR 26.8 L BUN/Creatinine Ratio 11.9 Glucose 88 Uric Acid Calcium 8.6 Total Bilirubin 1.2 AST 61 H ALT 18 Alkaline Phosphatase 187 H Lactate Dehydrogenase Total Protein 5.2 L Albumin 2.7 L Globulin 2.5 Albumin/Globulin Ratio 1.1 Urine Color Urine Appearance Urine pH Ur Specific [place] Urine Protein Urine Glucose (UA) Urine Ketones Urine Occult Blood Urine Nitrate Urine Bilirubin Urine Urobilinogen Ur Leukocyte Esterase Urine RBC Urine WBC Ur Squamous Epith Cells Urine Bacteria Hyaline Casts Granular Casts Ur Culture Indicated? Micro UA Comment U Opiates 300ng/mL cut Ur Oxycodone Screen Urine Methadone Screen Ur Barbiturates Screen U Tricyclic Antidepress Ur Phencyclidine Scrn Ur Amphetamines Screen U Methamphetamines Scrn Ur MDMA Scrn (Ecstasy) U Benzodiazepines Scrn Urine Cocaine Screen U Marijuana (THC) Screen SARS-CoV-2 (PCR) Negative Hep Bs Antigen Hepatitis C Antibody HIV 1&2 Ab/P24 Ag 4thGn Rubella Antibody Group B Strep (PCR) Blood Type Antibody Screen Antibody Identification Crossmatch 01/28/21 01/28/21 01/28/21 15:50 15:50 15:50 WBC RBC Hgb Hct MCV MCH MCHC RDW Plt Count Neut % (Auto) Lymph % (Auto) [place] % (Auto) Eos % (Auto) Baso % (Auto) Neut # (Auto) Lymph # (Auto) [place] # (Auto) Eos # (Auto) Baso # (Auto) Platelet Estimate Plt Morphology Comment RBC Morphology PT INR APTT Fibrinogen Sodium Potassium Chloride Carbon Dioxide BUN Creatinine Estimated GFR BUN/Creatinine Ratio Glucose Uric Acid 5.2 Calcium Total Bilirubin AST ALT Alkaline Phosphatase Lactate Dehydrogenase 1501 H Total Protein Albumin Globulin Albumin/Globulin Ratio Urine Color Urine Appearance Urine pH Ur Specific [place] Urine Protein Urine Glucose (UA) Urine Ketones Urine Occult Blood Urine Nitrate Urine Bilirubin Urine Urobilinogen Ur Leukocyte Esterase Urine RBC Urine WBC Ur Squamous Epith Cells Urine Bacteria Hyaline Casts Granular Casts Ur Culture Indicated? Micro UA Comment U Opiates 300ng/mL cut Ur Oxycodone Screen Urine Methadone Screen Ur Barbiturates Screen U Tricyclic Antidepress Ur Phencyclidine Scrn Ur Amphetamines Screen U Methamphetamines Scrn Ur MDMA Scrn (Ecstasy) U Benzodiazepines Scrn Urine Cocaine Screen U Marijuana (THC) Screen SARS-CoV-2 (PCR) Hep Bs Antigen Negative Hepatitis C Antibody Negative HIV 1&2 Ab/P24 Ag 4thGn Negative Rubella Antibody 38.0 Group B Strep (PCR) Neg for grp b strep Blood Type Antibody Screen Antibody Identification Crossmatch 01/28/21 01/28/21 01/28/21 15:55 17:35 20:34 WBC RBC Hgb Hct MCV MCH MCHC RDW Plt Count Neut % (Auto) Lymph % (Auto) [place] % (Auto) Eos % (Auto) Baso % (Auto) Neut # (Auto) Lymph # (Auto) [place] # (Auto) Eos # (Auto) Baso # (Auto) Platelet Estimate Plt Morphology Comment RBC Morphology PT 13.3 H INR 1.2 APTT 28 Fibrinogen 74 L* Sodium Potassium Chloride Carbon Dioxide BUN Creatinine Estimated GFR BUN/Creatinine Ratio Glucose Uric Acid Calcium Total Bilirubin AST ALT Alkaline Phosphatase Lactate Dehydrogenase Total Protein Albumin Globulin Albumin/Globulin Ratio Urine Color Urine Appearance Urine pH Ur Specific [place] Urine Protein Urine Glucose (UA) Urine Ketones Urine Occult Blood Urine Nitrate Urine Bilirubin Urine Urobilinogen Ur Leukocyte Esterase Urine RBC Urine WBC Ur Squamous Epith Cells Urine Bacteria Hyaline Casts Granular Casts Ur Culture Indicated? Micro UA Comment U Opiates 300ng/mL cut Negative Ur Oxycodone Screen Negative Urine Methadone Screen Negative Ur Barbiturates Screen Negative U Tricyclic Antidepress Negative Ur Phencyclidine Scrn Negative Ur Amphetamines Screen Positive H U Methamphetamines Scrn Positive H Ur MDMA Scrn (Ecstasy) Negative U Benzodiazepines Scrn Negative Urine Cocaine Screen Negative U Marijuana (THC) Screen Negative SARS-CoV-2 (PCR) Hep Bs Antigen Hepatitis C Antibody HIV 1&2 Ab/P24 Ag 4thGn Rubella Antibody Group B Strep (PCR) Blood Type A Negative Antibody Screen Positive Antibody Identification Anti-D Crossmatch See Detail 01/28/21 01/28/21 01/28/21 20:34 20:34 20:34 WBC 14.3 H RBC 1.75 L Hgb 5.3 L* Hct 15.4 L* MCV 88.0 MCH 30.6 MCHC 34.8 RDW 13.1 Plt Count 45 L Neut % (Auto) 91.4 H Lymph % (Auto) 6.5 L [place] % (Auto) 1.6 L Eos % (Auto) 0.2 L Baso % (Auto) 0.3 Neut # (Auto) 80905 H Lymph # (Auto) 900 L [place] # (Auto) 200 Eos # (Auto) 0 Baso # (Auto) 0 Platelet Estimate Plt Morphology Comment RBC Morphology PT INR APTT Fibrinogen Sodium 131 L Potassium 4.8 Chloride 107 Carbon Dioxide 21 L BUN 28 H Creatinine 2.35 H Estimated GFR 23.5 L BUN/Creatinine Ratio 11.9 Glucose 122 H Uric Acid Calcium 7.8 L Total Bilirubin 0.3 AST 40 H ALT 15 Alkaline Phosphatase 139 H Lactate Dehydrogenase Total Protein 4.1 L Albumin 2.0 L Globulin 2.1 Albumin/Globulin Ratio 1.0 Urine Color Urine Appearance Urine pH Ur Specific [place] Urine Protein Urine Glucose (UA) Urine Ketones Urine Occult Blood Urine Nitrate Urine Bilirubin Urine Urobilinogen Ur Leukocyte Esterase Urine RBC Urine WBC Ur Squamous Epith Cells Urine Bacteria Hyaline Casts Granular Casts Ur Culture Indicated? Micro UA Comment U Opiates 300ng/mL cut Ur Oxycodone Screen Urine Methadone Screen Ur Barbiturates Screen U Tricyclic Antidepress Ur Phencyclidine Scrn Ur Amphetamines Screen U Methamphetamines Scrn Ur MDMA Scrn (Ecstasy) U Benzodiazepines Scrn Urine Cocaine Screen U Marijuana (THC) Screen SARS-CoV-2 (PCR) Hep Bs Antigen Hepatitis C Antibody HIV 1&2 Ab/P24 Ag 4thGn Cancelled Rubella Antibody Group B Strep (PCR) Blood Type Antibody Screen Antibody Identification Crossmatch 01/29/21 01/29/21 01/29/21 04:25 04:25 04:25 WBC 16.6 H RBC 2.81 L Hgb 8.4 L Hct 24.7 L MCV 87.6 MCH 29.7 MCHC 33.9 RDW 14.4 Plt Count 43 L Neut % (Auto) 90.7 H Lymph % (Auto) 7.5 L [place] % (Auto) 1.7 L Eos % (Auto) 0.0 L Baso % (Auto) 0.1 Neut # (Auto) 73032 H Lymph # (Auto) 1300 [place] # (Auto) 300 Eos # (Auto) 0 Baso # (Auto) 0 Platelet Estimate Decreased on smear Plt Morphology Comment RBC Morphology Normal morphology PT INR APTT Fibrinogen 184 L Sodium 131 L Potassium 4.8 Chloride 106 Carbon Dioxide 21 L BUN 35 H Creatinine 2.87 H Estimated GFR 18.7 L BUN/Creatinine Ratio 12.2 Glucose 101 H Uric Acid Calcium 7.4 L Total Bilirubin 0.4 AST 38 H ALT 14 Alkaline Phosphatase 109 Lactate Dehydrogenase Total Protein 4.3 L Albumin 2.1 L Globulin 2.2 Albumin/Globulin Ratio 1.0 Urine Color Urine Appearance Urine pH Ur Specific [place] Urine Protein Urine Glucose (UA) Urine Ketones Urine Occult Blood Urine Nitrate Urine Bilirubin Urine Urobilinogen Ur Leukocyte Esterase Urine RBC Urine WBC Ur Squamous Epith Cells Urine Bacteria Hyaline Casts Granular Casts Ur Culture Indicated? Micro UA Comment U Opiates 300ng/mL cut Ur Oxycodone Screen Urine Methadone Screen Ur Barbiturates Screen U Tricyclic Antidepress Ur Phencyclidine Scrn Ur Amphetamines Screen U Methamphetamines Scrn Ur MDMA Scrn (Ecstasy) U Benzodiazepines Scrn Urine Cocaine Screen U Marijuana (THC) Screen SARS-CoV-2 (PCR) Hep Bs Antigen Hepatitis C Antibody HIV 1&2 Ab/P24 Ag 4thGn Rubella Antibody Group B Strep (PCR) Blood Type Antibody Screen Antibody Identification Crossmatch 01/29/21 01/29/21 01/29/21 06:45 09:35 09:35 WBC 16.5 H RBC 2.45 L Hgb 7.4 L Hct 21.2 L MCV 86.6 MCH 30.0 MCHC 34.6 RDW 14.6 Plt Count 48 L Neut % (Auto) 87.7 H Lymph % (Auto) 9.3 L [place] % (Auto) 2.7 L Eos % (Auto) 0.1 L Baso % (Auto) 0.2 Neut # (Auto) 70791 H Lymph # (Auto) 1500 [place] # (Auto) 400 Eos # (Auto) 0 Baso # (Auto) 0 Platelet Estimate Plt Morphology Comment RBC Morphology PT INR APTT Fibrinogen Sodium 129 L Potassium 4.8 Chloride 105 Carbon Dioxide 20 L BUN 37 H Creatinine 3.08 H Estimated GFR 17.2 L BUN/Creatinine Ratio 12.0 Glucose 123 H Uric Acid Calcium 7.6 L Total Bilirubin 0.1 L AST 37 H ALT 16 Alkaline Phosphatase 95 Lactate Dehydrogenase Total Protein 4.1 L Albumin 2.0 L Globulin 2.1 Albumin/Globulin Ratio 1.0 Urine Color Yellow Urine Appearance Sl cloudy Urine pH 5.0 Ur Specific [place] 1.025 Urine Protein 2+ H Urine Glucose (UA) Negative Urine Ketones Negative Urine Occult Blood 3+ H Urine Nitrate Positive H Urine Bilirubin Negative Urine Urobilinogen 0.2 Ur Leukocyte Esterase Negative Urine RBC 1-5/hpf Urine WBC 1-5/hpf Ur Squamous Epith Cells 10-30 /hpf H Urine Bacteria Many (>30) H Hyaline Casts 1-5/lpf Granular Casts 1-5/lpf Ur Culture Indicated? Culture not indicate Micro UA Comment U Opiates 300ng/mL cut Ur Oxycodone Screen Urine Methadone Screen Ur Barbiturates Screen U Tricyclic Antidepress Ur Phencyclidine Scrn Ur Amphetamines Screen U Methamphetamines Scrn Ur MDMA Scrn (Ecstasy) U Benzodiazepines Scrn Urine Cocaine Screen U Marijuana (THC) Screen SARS-CoV-2 (PCR) Hep Bs Antigen Hepatitis C Antibody HIV 1&2 Ab/P24 Ag 4thGn Rubella Antibody Group B Strep (PCR) Blood Type Antibody Screen Antibody Identification Crossmatch 01/29/21 09:35 WBC RBC Hgb Hct MCV MCH MCHC RDW Plt Count Neut % (Auto) Lymph % (Auto) [place] % (Auto) Eos % (Auto) Baso % (Auto) Neut # (Auto) Lymph # (Auto) [place] # (Auto) Eos # (Auto) Baso # (Auto) Platelet Estimate Plt Morphology Comment RBC Morphology PT INR APTT Fibrinogen 229 Sodium Potassium Chloride Carbon Dioxide BUN Creatinine Estimated GFR BUN/Creatinine Ratio Glucose Uric Acid Calcium Total Bilirubin AST ALT Alkaline Phosphatase Lactate Dehydrogenase Total Protein Albumin Globulin Albumin/Globulin Ratio Urine Color Urine Appearance Urine pH Ur Specific [place] Urine Protein Urine Glucose (UA) Urine Ketones Urine Occult Blood Urine Nitrate Urine Bilirubin Urine Urobilinogen Ur Leukocyte Esterase Urine RBC Urine WBC Ur Squamous Epith Cells Urine Bacteria Hyaline Casts Granular Casts Ur Culture Indicated? Micro UA Comment U Opiates 300ng/mL cut Ur Oxycodone Screen Urine Methadone Screen Ur Barbiturates Screen U Tricyclic Antidepress Ur Phencyclidine Scrn Ur Amphetamines Screen U Methamphetamines Scrn Ur MDMA Scrn (Ecstasy) U Benzodiazepines Scrn Urine Cocaine Screen U Marijuana (THC) Screen SARS-CoV-2 (PCR) Hep Bs Antigen Hepatitis C Antibody HIV 1&2 Ab/P24 Ag 4thGn Rubella Antibody Group B Strep (PCR) Blood Type Antibody Screen Antibody Identification Crossmatch Assessment & Plan Assessment and Plan (1) S/P : Problem details: This patient is recovering appropriately from her section itself, with mild lochia, no increased oozing at the incision, and improving pain control. Pain control is difficult to assess entirely due to withdrawal symptoms from methamphetamine, and we are avoiding NSAIDs due to VALENTINE thought to be due to hemorrhage related to abruption. IV fluids were discontinued by nursing overnight but will be resumed this AM. Patient to be allowed to slowly advance diet this AM. Will closely monitor electrolytes- repeat labs at 9 AM. Patient is hypertensive in the setting of withdrawal but does not meet diagnostic criteria for HELLP, with thrombocytopenia stable and thought to be due to consumption due to DIC. Hypertension etiology unclear in the setting of withdrawal, does not require medication at this time. Especially in the setting of VALENTINE, plan to closely monitor without magnesium sulfate or antihypertensives. Dexamethasone taper ordered per protocol used to aid in possible HELLP syndrome/thrombocytopenia. Patient discussed with Dr. Parisi, who is taking over care today with Dr. Rojas. - Resume IV fluids, maintain thakur for now - f/u UC, labs later this AM - slowly advance diet - VS q 1 hr Status: Acute (2) Methamphetamine use: Status: Acute (3) 32 weeks gestation of : Status: Acute Time Spent With Patient Time: Total time spent is greater than 50% in coordination of care (as documented) at patient's floor/unit and/or counseling patient: Time with patient: 15-24 minutes
[2021-01-29] MEDS: SODIUM CHLORIDE 0.9% 1,000 ML 1000 ML IV (12:00)
[2021-01-29] MEDS: SODIUM CHLORIDE 0.9% 1,000 ML 150 ML IV ×2 (12:51→21:09)
[2021-01-29] MEDS: OXYCODONE IR 5 MG TABLET PO (13:22)
[2021-01-29] MEDS: ALBUMIN HUMAN 25 GM/100 ML VIAL IV (13:29)
[2021-01-29 15:48] LABS: Bacteria Urine None Seen
[2021-01-29 16:55] LABS: Appearance Urine UA CLEAR; Bilirubin Urine UA NEGATIVE (NEGATIVE); Color Urine UA YELLOW; Glucose Urine UA NEGATIVE (Negative); Ketones Urine UA NEGATIVE (NEGATIVE); Leukocyte Esterase Urine UA NEGATIVE (NEGATIVE); Nitrite Urine UA NEGATIVE (Negative); Occult Blood Urine UA TRACE-LYSED (Negative); Protein Urine UA NEGATIVE (Negative); Urobilinogen Urine UA 0.2 E.U./dL (0.2)
[2021-01-29 16:58] LABS: pH Urine UA 5.5 (4.5-8.0)
[2021-01-29 17:08] LABS: Culture Indicated Urine Cult Not Indicated; RBC Urine 1-5/HPF (0-5/HPF); WBC Urine 0-1/HPF (0-5/HPF)
--- NOTE | 2021-01-29 17:23 | P.PN_ITS ---
Subjective Subjective Date Patient Seen: 01/29/21 Time Patient Seen: 17:23 Interval history: Patient is postop day # 1 status post emergent primary section for a category 3 tracing at 32 weeks gestation. At the time of surgery an abruption was found with large amount of clot in the uterus. Patient had a platelet count of 52 going into surgery. There was a concern that possibly this was HELLP syndrome versus consumptive coagulopathy. Today the platelet count has stabilized. Her creatinine continues to go up. We have pushed fluids throughout the day. She got 25 g of albumin and her urine output continues to increase. It is currently in 45-65 cc/hour range. Fluids switched to normal saline due to low sodium. Corrected calcium in the normal range per pharmacy. Recent labs are pending. Exam Vital Signs (past 8 hours): - 01/29/21 10:04 Pulse Rate 98 H Blood Pressure 146/100 H Oxygen Delivery Method Nasal Cannula Oxygen Flow Rate 1 Narrative Exam Narrative: Generally: Patient is sitting up in chair, eating dinner, no acute distress Fundus: Firm at U -3 Incision: Clean dry and intact with dressing. Objective Labs Result Diagrams: 01/29/21 09:35 01/29/21 09:35 Labs: Laboratory Results - last 24 hr 01/28/21 01/28/21 01/28/21 15:50 15:50 15:50 WBC RBC Hgb Hct MCV MCH MCHC RDW Plt Count Neut % (Auto) Lymph % (Auto) Gladwin % (Auto) Eos % (Auto) Baso % (Auto) Neut # (Auto) Lymph # (Auto) Gladwin # (Auto) Eos # (Auto) Baso # (Auto) Platelet Estimate Decreased on smear Plt Morphology Comment RBC Morphology Normal morphology PT INR APTT Fibrinogen Sodium 131 L Potassium 4.3 Chloride 107 Carbon Dioxide 21 L BUN 25 H Creatinine 2.10 H Estimated GFR 26.8 L BUN/Creatinine Ratio 11.9 Glucose 88 Uric Acid 5.2 Calcium 8.6 Total Bilirubin 1.2 AST 61 H ALT 18 Alkaline Phosphatase 187 H Lactate Dehydrogenase 1501 H Total Protein 5.2 L Albumin 2.7 L Globulin 2.5 Albumin/Globulin Ratio 1.1 Urine Color Urine Appearance Urine pH Ur Specific Clare Urine Protein Urine Glucose (UA) Urine Ketones Urine Occult Blood Urine Nitrate Urine Bilirubin Urine Urobilinogen Ur Leukocyte Esterase Urine RBC Urine WBC Ur Squamous Epith Cells Urine Bacteria Hyaline Casts Granular Casts Ur Culture Indicated? Micro UA Comment U Opiates 300ng/mL cut Ur Oxycodone Screen Urine Methadone Screen Ur Barbiturates Screen U Tricyclic Antidepress Ur Phencyclidine Scrn Ur Amphetamines Screen U Methamphetamines Scrn Ur MDMA Scrn (Ecstasy) U Benzodiazepines Scrn Urine Cocaine Screen U Marijuana (THC) Screen Hep Bs Antigen Hepatitis C Antibody HIV 1&2 Ab/P24 Ag 4thGn Rubella Antibody Group B Strep (PCR) Blood Type Antibody Screen Antibody Identification Crossmatch 01/28/21 01/28/21 01/28/21 15:50 15:50 15:55 WBC RBC Hgb Hct MCV MCH MCHC RDW Plt Count Neut % (Auto) Lymph % (Auto) Gladwin % (Auto) Eos % (Auto) Baso % (Auto) Neut # (Auto) Lymph # (Auto) Gladwin # (Auto) Eos # (Auto) Baso # (Auto) Platelet Estimate Plt Morphology Comment RBC Morphology PT INR APTT Fibrinogen Sodium Potassium Chloride Carbon Dioxide BUN Creatinine Estimated GFR BUN/Creatinine Ratio Glucose Uric Acid Calcium Total Bilirubin AST ALT Alkaline Phosphatase Lactate Dehydrogenase Total Protein Albumin Globulin Albumin/Globulin Ratio Urine Color Urine Appearance Urine pH Ur Specific Clare Urine Protein Urine Glucose (UA) Urine Ketones Urine Occult Blood Urine Nitrate Urine Bilirubin Urine Urobilinogen Ur Leukocyte Esterase Urine RBC Urine WBC Ur Squamous Epith Cells Urine Bacteria Hyaline Casts Granular Casts Ur Culture Indicated? Micro UA Comment U Opiates 300ng/mL cut Ur Oxycodone Screen Urine Methadone Screen Ur Barbiturates Screen U Tricyclic Antidepress Ur Phencyclidine Scrn Ur Amphetamines Screen U Methamphetamines Scrn Ur MDMA Scrn (Ecstasy) U Benzodiazepines Scrn Urine Cocaine Screen U Marijuana (THC) Screen Hep Bs Antigen Negative Hepatitis C Antibody Negative HIV 1&2 Ab/P24 Ag 4thGn Negative Rubella Antibody 38.0 Group B Strep (PCR) Neg for grp b strep Blood Type A Negative Antibody Screen Positive Antibody Identification Anti-D Crossmatch See Detail 01/28/21 01/28/21 01/28/21 17:35 20:34 20:34 WBC 14.3 H RBC 1.75 L Hgb 5.3 L* Hct 15.4 L* MCV 88.0 MCH 30.6 MCHC 34.8 RDW 13.1 Plt Count 45 L Neut % (Auto) 91.4 H Lymph % (Auto) 6.5 L Gladwin % (Auto) 1.6 L Eos % (Auto) 0.2 L Baso % (Auto) 0.3 Neut # (Auto) 77324 H Lymph # (Auto) 900 L Gladwin # (Auto) 200 Eos # (Auto) 0 Baso # (Auto) 0 Platelet Estimate Plt Morphology Comment RBC Morphology PT 13.3 H INR 1.2 APTT 28 Fibrinogen 74 L* Sodium Potassium Chloride Carbon Dioxide BUN Creatinine Estimated GFR BUN/Creatinine Ratio Glucose Uric Acid Calcium Total Bilirubin AST ALT Alkaline Phosphatase Lactate Dehydrogenase Total Protein Albumin Globulin Albumin/Globulin Ratio Urine Color Urine Appearance Urine pH Ur Specific Clare Urine Protein Urine Glucose (UA) Urine Ketones Urine Occult Blood Urine Nitrate Urine Bilirubin Urine Urobilinogen Ur Leukocyte Esterase Urine RBC Urine WBC Ur Squamous Epith Cells Urine Bacteria Hyaline Casts Granular Casts Ur Culture Indicated? Micro UA Comment U Opiates 300ng/mL cut Negative Ur Oxycodone Screen Negative Urine Methadone Screen Negative Ur Barbiturates Screen Negative U Tricyclic Antidepress Negative Ur Phencyclidine Scrn Negative Ur Amphetamines Screen Positive H U Methamphetamines Scrn Positive H Ur MDMA Scrn (Ecstasy) Negative U Benzodiazepines Scrn Negative Urine Cocaine Screen Negative U Marijuana (THC) Screen Negative Hep Bs Antigen Hepatitis C Antibody HIV 1&2 Ab/P24 Ag 4thGn Rubella Antibody Group B Strep (PCR) Blood Type Antibody Screen Antibody Identification Crossmatch 01/28/21 01/28/21 01/29/21 20:34 20:34 04:25 WBC 16.6 H RBC 2.81 L Hgb 8.4 L Hct 24.7 L MCV 87.6 MCH 29.7 MCHC 33.9 RDW 14.4 Plt Count 43 L Neut % (Auto) 90.7 H Lymph % (Auto) 7.5 L Gladwin % (Auto) 1.7 L Eos % (Auto) 0.0 L Baso % (Auto) 0.1 Neut # (Auto) 86811 H Lymph # (Auto) 1300 Gladwin # (Auto) 300 Eos # (Auto) 0 Baso # (Auto) 0 Platelet Estimate Decreased on smear Plt Morphology Comment RBC Morphology Normal morphology PT INR APTT Fibrinogen Sodium 131 L Potassium 4.8 Chloride 107 Carbon Dioxide 21 L BUN 28 H Creatinine 2.35 H Estimated GFR 23.5 L BUN/Creatinine Ratio 11.9 Glucose 122 H Uric Acid Calcium 7.8 L Total Bilirubin 0.3 AST 40 H ALT 15 Alkaline Phosphatase 139 H Lactate Dehydrogenase Total Protein 4.1 L Albumin 2.0 L Globulin 2.1 Albumin/Globulin Ratio 1.0 Urine Color Urine Appearance Urine pH Ur Specific Clare Urine Protein Urine Glucose (UA) Urine Ketones Urine Occult Blood Urine Nitrate Urine Bilirubin Urine Urobilinogen Ur Leukocyte Esterase Urine RBC Urine WBC Ur Squamous Epith Cells Urine Bacteria Hyaline Casts Granular Casts Ur Culture Indicated? Micro UA Comment U Opiates 300ng/mL cut Ur Oxycodone Screen Urine Methadone Screen Ur Barbiturates Screen U Tricyclic Antidepress Ur Phencyclidine Scrn Ur Amphetamines Screen U Methamphetamines Scrn Ur MDMA Scrn (Ecstasy) U Benzodiazepines Scrn Urine Cocaine Screen U Marijuana (THC) Screen Hep Bs Antigen Hepatitis C Antibody HIV 1&2 Ab/P24 Ag 4thGn Cancelled Rubella Antibody Group B Strep (PCR) Blood Type Antibody Screen Antibody Identification Crossmatch 01/29/21 01/29/21 01/29/21 04:25 04:25 06:45 WBC RBC Hgb Hct MCV MCH MCHC RDW Plt Count Neut % (Auto) Lymph % (Auto) Gladwin % (Auto) Eos % (Auto) Baso % (Auto) Neut # (Auto) Lymph # (Auto) Gladwin # (Auto) Eos # (Auto) Baso # (Auto) Platelet Estimate Plt Morphology Comment RBC Morphology PT INR APTT Fibrinogen 184 L Sodium 131 L Potassium 4.8 Chloride 106 Carbon Dioxide 21 L BUN 35 H Creatinine 2.87 H Estimated GFR 18.7 L BUN/Creatinine Ratio 12.2 Glucose 101 H Uric Acid Calcium 7.4 L Total Bilirubin 0.4 AST 38 H ALT 14 Alkaline Phosphatase 109 Lactate Dehydrogenase Total Protein 4.3 L Albumin 2.1 L Globulin 2.2 Albumin/Globulin Ratio 1.0 Urine Color Yellow Urine Appearance Sl cloudy Urine pH 5.0 Ur Specific Clare 1.025 Urine Protein 2+ H Urine Glucose (UA) Negative Urine Ketones Negative Urine Occult Blood 3+ H Urine Nitrate Positive H Urine Bilirubin Negative Urine Urobilinogen 0.2 Ur Leukocyte Esterase Negative Urine RBC 1-5/hpf Urine WBC 1-5/hpf Ur Squamous Epith Cells 10-30 /hpf H Urine Bacteria Many (>30) H Hyaline Casts 1-5/lpf Granular Casts 1-5/lpf Ur Culture Indicated? Culture not indicate Micro UA Comment U Opiates 300ng/mL cut Ur Oxycodone Screen Urine Methadone Screen Ur Barbiturates Screen U Tricyclic Antidepress Ur Phencyclidine Scrn Ur Amphetamines Screen U Methamphetamines Scrn Ur MDMA Scrn (Ecstasy) U Benzodiazepines Scrn Urine Cocaine Screen U Marijuana (THC) Screen Hep Bs Antigen Hepatitis C Antibody HIV 1&2 Ab/P24 Ag 4thGn Rubella Antibody Group B Strep (PCR) Blood Type Antibody Screen Antibody Identification Crossmatch 01/29/21 01/29/21 01/29/21 09:35 09:35 09:35 WBC 16.5 H RBC 2.45 L Hgb 7.4 L Hct 21.2 L MCV 86.6 MCH 30.0 MCHC 34.6 RDW 14.6 Plt Count 48 L Neut % (Auto) 87.7 H Lymph % (Auto) 9.3 L Gladwin % (Auto) 2.7 L Eos % (Auto) 0.1 L Baso % (Auto) 0.2 Neut # (Auto) 97247 H Lymph # (Auto) 1500 Gladwin # (Auto) 400 Eos # (Auto) 0 Baso # (Auto) 0 Platelet Estimate Plt Morphology Comment RBC Morphology PT INR APTT Fibrinogen 229 Sodium 129 L Potassium 4.8 Chloride 105 Carbon Dioxide 20 L BUN 37 H Creatinine 3.08 H Estimated GFR 17.2 L BUN/Creatinine Ratio 12.0 Glucose 123 H Uric Acid Calcium 7.6 L Total Bilirubin 0.1 L AST 37 H ALT 16 Alkaline Phosphatase 95 Lactate Dehydrogenase Total Protein 4.1 L Albumin 2.0 L Globulin 2.1 Albumin/Globulin Ratio 1.0 Urine Color Urine Appearance Urine pH Ur Specific Clare Urine Protein Urine Glucose (UA) Urine Ketones Urine Occult Blood Urine Nitrate Urine Bilirubin Urine Urobilinogen Ur Leukocyte Esterase Urine RBC Urine WBC Ur Squamous Epith Cells Urine Bacteria Hyaline Casts Granular Casts Ur Culture Indicated? Micro UA Comment U Opiates 300ng/mL cut Ur Oxycodone Screen Urine Methadone Screen Ur Barbiturates Screen U Tricyclic Antidepress Ur Phencyclidine Scrn Ur Amphetamines Screen U Methamphetamines Scrn Ur MDMA Scrn (Ecstasy) U Benzodiazepines Scrn Urine Cocaine Screen U Marijuana (THC) Screen Hep Bs Antigen Hepatitis C Antibody HIV 1&2 Ab/P24 Ag 4thGn Rubella Antibody Group B Strep (PCR) Blood Type Antibody Screen Antibody Identification Crossmatch 01/29/21 12:00 WBC RBC Hgb Hct MCV MCH MCHC RDW Plt Count Neut % (Auto) Lymph % (Auto) Gladwin % (Auto) Eos % (Auto) Baso % (Auto) Neut # (Auto) Lymph # (Auto) Gladwin # (Auto) Eos # (Auto) Baso # (Auto) Platelet Estimate Plt Morphology Comment RBC Morphology PT INR APTT Fibrinogen Sodium Potassium Chloride Carbon Dioxide BUN Creatinine Estimated GFR BUN/Creatinine Ratio Glucose Uric Acid Calcium Total Bilirubin AST ALT Alkaline Phosphatase Lactate Dehydrogenase Total Protein Albumin Globulin Albumin/Globulin Ratio Urine Color Yellow Urine Appearance Clear Urine pH 5.5 Ur Specific Clare 1.010 Urine Protein Negative Urine Glucose (UA) Negative Urine Ketones Negative Urine Occult Blood Trace-lysed Urine Nitrate Negative Urine Bilirubin Negative Urine Urobilinogen 0.2 Ur Leukocyte Esterase Negative Urine RBC 1-5/hpf Urine WBC 0-1/hpf Ur Squamous Epith Cells Urine Bacteria None seen Hyaline Casts Granular Casts Ur Culture Indicated? Cult not indicated Micro UA Comment U Opiates 300ng/mL cut Ur Oxycodone Screen Urine Methadone Screen Ur Barbiturates Screen U Tricyclic Antidepress Ur Phencyclidine Scrn Ur Amphetamines Screen U Methamphetamines Scrn Ur MDMA Scrn (Ecstasy) U Benzodiazepines Scrn Urine Cocaine Screen U Marijuana (THC) Screen Hep Bs Antigen Hepatitis C Antibody HIV 1&2 Ab/P24 Ag 4thGn Rubella Antibody Group B Strep (PCR) Blood Type Antibody Screen Antibody Identification Crossmatch [facility] Medical History (Updated 01/29/21 @ 07:40 by Leonora Rojas DO) AMA (advanced maternal age) multigravida 35+ Anemia Anxiety Blood type, Rh negative Methamphetamine use Migraine Ovarian cyst Pre-eclampsia (~2004) SAB (spontaneous ) Smoker (spontaneous vaginal delivery) (~06/21/05) (spontaneous vaginal delivery) (~04/30/10) (spontaneous vaginal delivery) (~09/13/14) (spontaneous vaginal delivery) (~06/27/16) Surgical History (Updated 01/29/21 @ 11:51 by Pat Conti MD) S/P [place] teeth extracted Family History Mother Cancer Breast cancer Father Hypertension Migraine Grandmother Cancer Breast cancer Grandfather Cancer Lung cancer Grandmother Myocardial infarction Acute alcohol abuse Grandfather Old age Social History marital status: unmarried,living together number of children: 4 household members: significant other, children and other lives independently: No pets and animals: Yes (X 1 cat : mostly outdoors) occupational status: employed current occupational exposures/hazards: Yes special soren needs: No Smoking Status: Current every day smoker Tobacco: How many years used: 20 quit status: considering quitting second hand exposure: Yes alcohol intake: former substance use type: does not use Assessment & Plan Post-op Postoperative Procedures: Procedures Operation Date: 01/28/21 16:30 Actual Procedures Side Surgeon p Section Not Applicable Pat Conti MD Postoperative day: 1 Postoperative status: anemia Postoperative status narrative: Low platelets Elevated creatinine Slightly elevated liver function tests Postoperative plan narrative: Continue close observation of urine output Await most recent lab results Time Spent With Patient Time with patient: 15-24 minutes
[2021-01-29 18:11] LABS: Add Manual Diff / Slide Review NO; Basophils Absolute Auto 0 /uL (0-100); Eosinophils Absolute Auto 0 /uL (0-450); Lymphocytes Absolute Auto 1200 /uL (1100-4500); Lymphocytes Percent Auto 7.9 % (25-40); Mean Corpuscular HGB Conc 34.3 % (30-36); Mean Corpuscular Hemoglobin 29.8 PG (26-34); Mean Corpuscular Volume 86.9 fL (80-100); Monocytes Absolute Auto 500 /uL (0-900); Monocytes Percent Auto 3.6 % (3-14); Neutrophils Absolute Auto 13000 /uL (1500-7000); Neutrophils Percent Auto 88.5 % (50-75); Red Blood Cell Count 2.01 X10^6/uL (4.0-5.2); Red Cell Distribution Width 14.4 % (11.6-14.8); White Blood Cell Count 14.7 X10^3/uL (4.5-11.0)
[2021-01-29 18:18] LABS: Hematocrit 17.5 % (36-46)
[2021-01-29 18:19] LABS: Platelet Count 55 X10^3/uL (150-400)
[2021-01-29 22:07] LABS: Basophils Absolute Auto 0 /uL (0-100); Basophils Percent Auto 0.1 % (0-2); Eosinophils Absolute Auto 0 /uL (0-450); Lymphocytes Absolute Auto 1400 /uL (1100-4500); Lymphocytes Percent Auto 8.9 % (25-40); Mean Corpuscular HGB Conc 34.2 % (30-36); Mean Corpuscular Hemoglobin 29.9 PG (26-34); Mean Corpuscular Volume 87.5 fL (80-100); Monocytes Absolute Auto 900 /uL (0-900); Neutrophils Absolute Auto 13600 /uL (1500-7000); Platelet Count 55 X10^3/uL (150-400); Red Cell Distribution Width 14.6 % (11.6-14.8); White Blood Cell Count 15.9 X10^3/uL (4.5-11.0)
[2021-01-29 22:12] LABS: Hematocrit 16.6 % (36-46); Hemoglobin 5.7 g/dL (12.0-16.0)
[2021-01-29 22:13] LABS: Add Manual Diff / Slide Review SLIDE REVIEW
[2021-01-29 23:55] LABS: Alanine Aminotransferase 15 IU/L (<35); Albumin 2.3 g/dL (3.5-5.0); Albumin Globulin Ratio 1.2 (1.0-2.8); Alkaline Phosphatase 79 U/L (38-126); Aspartate Aminotransferase 35 IU/L (14-36); BUN Creatinine Ratio 12.4 (6-22); Blood Urea Nitrogen 42 mg/dL (7-17); Calcium 7.3 mg/dL (8.4-10.2); Carbon Dioxide 18 mmol/L (22-32); Chloride 107 mmol/L (98-107); Estimated Glomerular Filt Rate 15.5 mL/min (>60); Globulin 1.9 g/dL (1.7-4.1); Glucose 116 mg/dL (70-100); HEMOLYSIS < 15 (0-50); Potassium 4.5 mmol/L (3.4-5.1); Sodium 132 mmol/L (137-145); Total Protein 4.2 g/dL (6.3-8.2)
[2021-01-29 23:57] LABS: Bilirubin Total < 0.1 mg/dL (0.2-1.3)
[2021-01-30] VITALS (11 sets, daily range): BP systolic 114–140; BP diastolic 61–88; PULSE 56–92; RESP 14–16; TEMP 36.4–37.1
[2021-01-30 04:50] LABS: Anisocytosis 1+; Platelet Estimate Decreased on smear
[2021-01-30] MEDS: OXYCODONE IR 10 MG TABLET PO (06:41)
--- NOTE | 2021-01-30 07:43 | PC.NURSE ---
Was unable to document the end of the second transfusion at 0730.
[2021-01-30 08:17] LABS: Add Manual Diff / Slide Review NO; Basophils Absolute Auto 0 /uL (0-100); Basophils Percent Auto 0.3 % (0-2); Eosinophils Absolute Auto 0 /uL (0-450); Eosinophils Percent Auto 0.1 % (2-4); Hemoglobin 7.3 g/dL (12.0-16.0); Lymphocytes Absolute Auto 1900 /uL (1100-4500); Lymphocytes Percent Auto 12.8 % (25-40); Mean Corpuscular Hemoglobin 30.9 PG (26-34); Mean Corpuscular Volume 88.2 fL (80-100); Monocytes Absolute Auto 900 /uL (0-900); Monocytes Percent Auto 6.3 % (3-14); Neutrophils Absolute Auto 12000 /uL (1500-7000); Neutrophils Percent Auto 80.5 % (50-75); Platelet Count 54 X10^3/uL (150-400); Red Blood Cell Count 2.38 X10^6/uL (4.0-5.2); Red Cell Distribution Width 14.6 % (11.6-14.8)
[2021-01-30 08:28] LABS: Alanine Aminotransferase 9 IU/L (<35); Albumin 2.2 g/dL (3.5-5.0); Alkaline Phosphatase 72 U/L (38-126); Aspartate Aminotransferase 30 IU/L (14-36); Bilirubin Total 0.2 mg/dL (0.2-1.3); Blood Urea Nitrogen 56 mg/dL (7-17); Calcium 7.7 mg/dL (8.4-10.2); Carbon Dioxide 18 mmol/L (22-32); Chloride 109 mmol/L (98-107); Estimated Glomerular Filt Rate 12.8 mL/min (>60); Globulin 2.1 g/dL (1.7-4.1); Glucose 100 mg/dL (70-100); HEMOLYSIS < 15 (0-50); Potassium 4.5 mmol/L (3.4-5.1); Sodium 134 mmol/L (137-145); Total Protein 4.3 g/dL (6.3-8.2)
--- NOTE | 2021-01-30 08:34 | CM.DANOTE ---
Addendum entered by Anna Bone 01/30/21 15:15: Reviewed chart. Patient appears to be transferring to for higher medical care. PHYSICAL INSTRUCTOR left with both [facility] and [facility]. KJS Addendum entered by Anna Bone 01/30/21 09:16: Consent signed by patient and PHYSICAL INSTRUCTOR assessment faxed to [facility] today fax# [phone]. KJS Original Note: PHYSICAL INSTRUCTOR Note: Received referral for this 35yr old female admitted to [facility] with complaints of incision pain. At time of admit patient was determined to be approximately 32weeks . No following provider or pre-tres care noted. Urine tox screen positive for methamphetamines and amphetamines. Due to distress and placenta abruption patient went for emergent on 01-28-2021. [place] male transferred to [facility] in [place] on vent with no significant neurologic response. PHYSICAL INSTRUCTOR spoke with Maryann at [facility] on 01-29-21. Release of information signed by patient for PHYSICAL INSTRUCTOR team to discuss her care with [facility] PHYSICAL INSTRUCTOR staff. Maryann reports that stable on vent. CPS report initiated by L&D nurses on 01-29-21. Assigned CM at [facility] is Michelle # [phone]. PHYSICAL INSTRUCTOR spoke at length with Michelle yesterday afternoon. Michelle reports that patient known to her from previous cases. PHYSICAL INSTRUCTOR met with patient on Thursday afternoon explained PHYSICAL INSTRUCTOR role. Patient alert and oriented at time of visit. Patient responds emotionally when her son is brought up. Patient admits to using methamphetamines but reports that she only uses them on occasion. Patient reports that she knew she was at about 12-16 weeks. Patient reports that she does not like medical offices therefore, did not obtain provider during or seek any type of care? Father of is her significant other Pancho no additional information given about him by patient. Patient does report that significant other/Pancho does not know she has been using drugs. Unclear how much Pancho knows about condition of ? Patient reports that she has had previous CPS involvement but that all previous cases have been closed. Patient reports that she cares for her other 3 children whom are: Taj (10) [place] (6) and Loren (4). PHYSICAL INSTRUCTOR asked about the whereabouts of those children? Patient reports that her friend in [place] is caring for them during this hospitalization. PHYSICAL INSTRUCTOR encouraged patient to speak with [facility] today re: status and next steps. Patient has already been in contact with CPS worker Michelle. Patient mood seems appropriate given her current situation. Patient denies any suicidal or homicidal ideation. Patient provides limited information pertaining to her substance use and current living situation. Patient reports that she plans to go to [facility] upon d/c to spend time with her son. Patient requests assistance with gas for her automobile. PHYSICAL INSTRUCTOR encouraged patient to follow up with [facility] re: available resources for her. Patient made aware that [facility] does not provide assistance with gas for private automobiles. PHYSICAL INSTRUCTOR spoke with CPS/Michelle after interview with patient. PHYSICAL INSTRUCTOR reports concerns for the whereabouts of patient's current underage children? Michelle reports that she will come to [facility] and interview patient on 01-29-21. Patient provides very vague answers pertaining to her children and there current status. Patient denies that her children know she uses drugs. Again, patient minimizes drug use and reports only using on occasion. P: Patient to d/c home when medically stable. PHYSICAL INSTRUCTOR team to contact CPS and [facility] when patient discharges. Patient denies any community services needs expect for gas money. Patient appears cooperative and agrees to work with CPS. HELENA Hutchins Discharge Planning/Care Management CM Discharge Assessment Start: 01/30/21 08:25 Freq: Status: Active Protocol: Document 01/30/21 08:25 KJS (Rec: 01/30/21 08:34 KJS [id number]) Discharge Planning Assessment Assigned Public Safety Police HELENA Hutchins Contact Information Pancho (significant other? no number provided). Advance Directives? No History Provided By Patient,Medical Record Has Patient been admitted in last 30 No days? Prior Living Arrangements House Comment Patient reports that she resides in [place]. with significant other (Pancho). Household Members significant other,other, children Type of transporation used prior to Drives own vehicle admit Independent with ADL's Yes Is patient alert and oriented? Yes Caregiver for Another Yes: Patient reports that she has 3 children living with her . Barriers to Discharge No Discharge Plan Home Transportation Arrangement Patient reports that she has automobile in [facility] parking lot . Referrals Initiated Other Additional Comment CStaciPStaciS. assigned side door worker is Michelle ph# [phone]. Assigned PHYSICAL INSTRUCTOR at [facility] is Maryann ph# [phone]. Review Status In Process Next Review Type Continued Stay Review
[2021-01-30 08:55] LABS: RPR Screen Non Reactive (Non Reactive)
[2021-01-30] MEDS: LABETALOL 100 MG TABLET PO (10:20)
[2021-01-30] MEDS: DOCUSATE 250 MG CAPSULE PO ×2 (10:20→11:39)
[2021-01-30] MEDS: FERROUS SULFATE 325 MG TABLET PO (10:21)
[2021-01-30] MEDS: FUROSEMIDE 20 MG/2 ML VIAL 10 MG IV (10:30)
[2021-01-30 11:21] LABS: Reticulocyte Count, Percent 3.4 % (1.06-2.63)
[2021-01-30 11:21] LABS: INR 0.8 (0.9-1.3); Prothrombin Time 9.2 SECONDS (10.1-12.7)
[2021-01-30 11:22] LABS: Fibrinogen 285 mg/dL (211-428)
[2021-01-30 11:24] LABS: PTT Partial Thromboplastin Tim 24 SECONDS (26.4-36.2)
[2021-01-30 11:29] LABS: Alanine Aminotransferase 10 IU/L (<35); Albumin 2.3 g/dL (3.5-5.0); Alkaline Phosphatase 74 U/L (38-126); Aspartate Aminotransferase 31 IU/L (14-36); BUN Creatinine Ratio 13.7 (6-22); Bilirubin Total 0.2 mg/dL (0.2-1.3); Blood Urea Nitrogen 58 mg/dL (7-17); Calcium 7.8 mg/dL (8.4-10.2); Carbon Dioxide 19 mmol/L (22-32); Chloride 108 mmol/L (98-107); Globulin 2.2 g/dL (1.7-4.1); Glucose 92 mg/dL (70-100); HEMOLYSIS < 15 (0-50); Potassium 4.3 mmol/L (3.4-5.1); Sodium 133 mmol/L (137-145); Total Protein 4.5 g/dL (6.3-8.2)
[2021-01-30 11:30] LABS: Lactate Dehydrogenase 805 U/L (313-618)
--- NOTE | 2021-01-30 12:42 | P.PN_ITS ---
Subjective Subjective Date Patient Seen: 01/30/21 Time Patient Seen: 12:42 Interval history: Patient s a 35 year old who presented on 01/28/21 at approximately 32 weeks gestation with abdominal pain and a Category 3 tracing. She underwent a stat section which revealed approximately 80% abruption of the placenta. She had a large amount of clot in the uterus. She had a Couvel[place] uterus. The only lab value that was known prior [place] [address]. A decision was made to do the section under general anesthesia. Patient received 2 units of packed red blood cells on the evening of January 28, 2021. Overnight she had decreasing urine output. On January 29, 2021 she was given 25 g of albumin IV and approximately 3 L of fluid. On admission she had a slightly elevated SGOT, this normalized fairly quickly. She had an elevated creatinine which continues to go up and the most recent 1 is 4.2. She had an elevated LDH at 1500 on admission and that is down to 800 today. Her initial PT was slightly elevated at 13.3 seconds, this normalized quickly. Her platelets dropped down to 43 and now are hovering around 54-55. Her sodium was low but responded to normal saline. A corrected calcium was in the normal range. Initially her blood pressures were in the 140s over 100s. On postop day # 1 she was started on labetalol 100 mg p.o. b.i.d.. Her blood pressures have been in the 110s to 130s over 70s to 90s. Her bleeding has been scant to minimal. A consultation was done with the perinatologist at [facility]. A decision was made to transfer due to the rising creatinine and possibility of need for dialysis. Exam Vital Signs (past 8 hours): - 01/30/21 07:21 01/30/21 10:20 01/30/21 10:57 Temperature 97.7 F 97.6 F Pulse Rate 92 H 78 56 L Respiratory Rate 16 14 Blood Pressure 123/76 135/82 121/61 01/30/21 11:19 Temperature 97.7 F Pulse Rate 62 Respiratory Rate 14 Blood Pressure 126/72 Oxygen Delivery Method Nasal Cannula Oxygen Flow Rate 1 Narrative Exam Narrative: Generally: Patient is sitting up in bed, no acute distress Lungs: Few rales in the left side. Cardiovascular: Regular rate and rhythm Abdomen: Soft and flat. Appropriately tender. Good bowel sounds in all 4 quadrants. Fundus: Firm U -3 Incision: Clean dry and intact with Aquacel dressing Extremities: 1+ edema, 1+ DTRs, no clonus, negative Homans Objective Labs Result Diagrams: 01/30/21 10:56 01/30/21 10:56 Labs: Laboratory Results - last 24 hr 01/28/21 01/28/21 01/29/21 15:50 15:55 12:00 WBC RBC Hgb Hct MCV MCH MCHC RDW Plt Count Neut % (Auto) Lymph % (Auto) Schleicher % (Auto) Eos % (Auto) Baso % (Auto) Neut # (Auto) Lymph # (Auto) Schleicher # (Auto) Eos # (Auto) Baso # (Auto) Platelet Estimate RBC Morphology Anisocytosis Percent Retic PT INR APTT Fibrinogen Sodium Potassium Chloride Carbon Dioxide BUN Creatinine Estimated GFR BUN/Creatinine Ratio Glucose Calcium Total Bilirubin AST ALT Alkaline Phosphatase Lactate Dehydrogenase Total Protein Albumin Globulin Albumin/Globulin Ratio Urine Color Yellow Urine Appearance Clear Urine pH 5.5 Ur Specific [place] 1.010 Urine Protein Negative Urine Glucose (UA) Negative Urine Ketones Negative Urine Occult Blood Trace-lysed Urine Nitrate Negative Urine Bilirubin Negative Urine Urobilinogen 0.2 Ur Leukocyte Esterase Negative Urine RBC 1-5/hpf Urine WBC 0-1/hpf Urine Bacteria None seen Ur Culture Indicated? Cult not indicated Serum VDRL Non reactive Blood Type A Negative Antibody Screen Positive Antibody Identification Anti-D Crossmatch See Detail 01/29/21 01/29/21 01/29/21 16:18 16:18 21:55 WBC 14.7 H 15.9 H RBC 2.01 L 1.90 L Hgb 6.0 L* 5.7 L* Hct 17.5 L* 16.6 L* MCV 86.9 87.5 MCH 29.8 29.9 MCHC 34.3 34.2 RDW 14.4 14.6 Plt Count 55 L 55 L Neut % (Auto) 88.5 H 85.0 H Lymph % (Auto) 7.9 L 8.9 L Schleicher % (Auto) 3.6 6.0 Eos % (Auto) 0.0 L 0.0 L Baso % (Auto) 0.0 0.1 Neut # (Auto) 08475 H 31445 H Lymph # (Auto) 1200 1400 Schleicher # (Auto) 500 900 Eos # (Auto) 0 0 Baso # (Auto) 0 0 Platelet Estimate Decreased on smear RBC Morphology See below Anisocytosis 1+ H Percent Retic PT INR APTT Fibrinogen Sodium 132 L Potassium 4.5 Chloride 107 Carbon Dioxide 18 L BUN 42 H Creatinine 3.38 H Estimated GFR 15.5 L BUN/Creatinine Ratio 12.4 Glucose 116 H Calcium 7.3 L Total Bilirubin < 0.1 L AST 35 ALT 15 Alkaline Phosphatase 79 Lactate Dehydrogenase Total Protein 4.2 L Albumin 2.3 L Globulin 1.9 Albumin/Globulin Ratio 1.2 Urine Color Urine Appearance Urine pH Ur Specific [place] Urine Protein Urine Glucose (UA) Urine Ketones Urine Occult Blood Urine Nitrate Urine Bilirubin Urine Urobilinogen Ur Leukocyte Esterase Urine RBC Urine WBC Urine Bacteria Ur Culture Indicated? Serum VDRL Blood Type Antibody Screen Antibody Identification Crossmatch 01/30/21 01/30/21 01/30/21 08:05 08:05 10:56 WBC 15.0 H RBC 2.38 L Hgb 7.3 L Hct 21.0 L MCV 88.2 MCH 30.9 MCHC 35.0 RDW 14.6 Plt Count 54 L Neut % (Auto) 80.5 H Lymph % (Auto) 12.8 L Schleicher % (Auto) 6.3 Eos % (Auto) 0.1 L Baso % (Auto) 0.3 Neut # (Auto) 36835 H Lymph # (Auto) 1900 Schleicher # (Auto) 900 Eos # (Auto) 0 Baso # (Auto) 0 Platelet Estimate RBC Morphology Anisocytosis Percent Retic PT INR APTT Fibrinogen Sodium 134 L 133 L Potassium 4.5 4.3 Chloride 109 H 108 H Carbon Dioxide 18 L 19 L BUN 56 H 58 H Creatinine 3.99 H 4.22 H Estimated GFR 12.8 L 12.0 L BUN/Creatinine Ratio 14.0 13.7 Glucose 100 92 Calcium 7.7 L 7.8 L Total Bilirubin 0.2 0.2 AST 30 31 ALT 9 10 Alkaline Phosphatase 72 74 Lactate Dehydrogenase Total Protein 4.3 L 4.5 L Albumin 2.2 L 2.3 L Globulin 2.1 2.2 Albumin/Globulin Ratio 1.0 1.0 Urine Color Urine Appearance Urine pH Ur Specific [place] Urine Protein Urine Glucose (UA) Urine Ketones Urine Occult Blood Urine Nitrate Urine Bilirubin Urine Urobilinogen Ur Leukocyte Esterase Urine RBC Urine WBC Urine Bacteria Ur Culture Indicated? Serum VDRL Blood Type Antibody Screen Antibody Identification Crossmatch 01/30/21 01/30/21 01/30/21 10:56 12:00 12:05 WBC RBC Hgb Hct MCV MCH MCHC RDW Plt Count Neut % (Auto) Lymph % (Auto) Schleicher % (Auto) Eos % (Auto) Baso % (Auto) Neut # (Auto) Lymph # (Auto) Schleicher # (Auto) Eos # (Auto) Baso # (Auto) Platelet Estimate RBC Morphology Anisocytosis Percent Retic 3.4 H PT 9.2 L INR 0.8 L APTT 24 L Fibrinogen Sodium Potassium Chloride Carbon Dioxide BUN Creatinine Estimated GFR BUN/Creatinine Ratio Glucose Calcium Total Bilirubin AST ALT Alkaline Phosphatase Lactate Dehydrogenase 805 H D Total Protein Albumin Globulin Albumin/Globulin Ratio Urine Color Urine Appearance Urine pH Ur Specific [place] Urine Protein Urine Glucose (UA) Urine Ketones Urine Occult Blood Urine Nitrate Urine Bilirubin Urine Urobilinogen Ur Leukocyte Esterase Urine RBC Urine WBC Urine Bacteria Ur Culture Indicated? Serum VDRL Blood Type Antibody Screen Antibody Identification Crossmatch 01/30/21 12:06 WBC RBC Hgb Hct MCV MCH MCHC RDW Plt Count Neut % (Auto) Lymph % (Auto) Schleicher % (Auto) Eos % (Auto) Baso % (Auto) Neut # (Auto) Lymph # (Auto) Schleicher # (Auto) Eos # (Auto) Baso # (Auto) Platelet Estimate RBC Morphology Anisocytosis Percent Retic PT INR APTT Fibrinogen 285 Sodium Potassium Chloride Carbon Dioxide BUN Creatinine Estimated GFR BUN/Creatinine Ratio Glucose Calcium Total Bilirubin AST ALT Alkaline Phosphatase Lactate Dehydrogenase Total Protein Albumin Globulin Albumin/Globulin Ratio Urine Color Urine Appearance Urine pH Ur Specific [place] Urine Protein Urine Glucose (UA) Urine Ketones Urine Occult Blood Urine Nitrate Urine Bilirubin Urine Urobilinogen Ur Leukocyte Esterase Urine RBC Urine WBC Urine Bacteria Ur Culture Indicated? Serum VDRL Blood Type Antibody Screen Antibody Identification Crossmatch [facility], [facility] Medical History (Updated 01/29/21 @ 07:40 by Leonora Rojas DO) AMA (advanced maternal age) multigravida 35+ Anemia Anxiety Blood type, Rh negative Methamphetamine use Migraine Ovarian cyst Pre-eclampsia (~2004) SAB (spontaneous ) Smoker (spontaneous vaginal delivery) (~06/21/05) (spontaneous vaginal delivery) (~04/30/10) (spontaneous vaginal delivery) (~09/13/14) (spontaneous vaginal delivery) (~06/27/16) Surgical History (Updated 01/29/21 @ 11:51 by Pat Conti MD) S/P [place] teeth extracted Family History Mother Cancer Breast cancer Father Hypertension Migraine Grandmother Cancer Breast cancer Grandfather Cancer Lung cancer Grandmother Myocardial infarction Acute alcohol abuse Grandfather Old age Social History marital status: unmarried,living together number of children: 4 household members: significant other, children and other lives independently: No pets and animals: Yes (X 1 cat : mostly outdoors) occupational status: employed current occupational exposures/hazards: Yes special soren needs: No Smoking Status: Current every day smoker Tobacco: How many years used: 20 quit status: considering quitting second hand exposure: Yes alcohol intake: former substance use type: does not use Assessment & Plan Assessment & Plan narrative: Assessment: 35-year-old 10 para [id number] who presented without care at 32 weeks gestation with a category 3 tracing. She underwent an urgent section and was found to have an 80% abruption of the placenta with large amount of clot in a Couvel[place] uterus. Initial platelet count 55K and dropped to a low of 42 K, and now hovering at 54- 55 K. Initial PT elevated at 13.3 now normal coags Initial fibrinogen in the 70s, now in the 280's. Initial creatinine 2.1, now at 4.2. Received 1 dose of Lasix IV 10 mg, diuresed 900 cc over 2 hours. Currently receiving her 3rd transfusion of 2 units of packed red blood cells Her bleeding has been scant to minimal Plan: Transfer to the [facility] labor and delivery. Higher level of care necessary for possible need for dialysis or plasmapheresis Accepted by Dr. Grace
[2021-01-30 12:52] LABS: Add Manual Diff / Slide Review NO; Basophils Absolute Auto 0 /uL (0-100); Basophils Percent Auto 0.2 % (0-2); Eosinophils Absolute Auto 0 /uL (0-450); Eosinophils Percent Auto 0.1 % (2-4); Hematocrit 21.1 % (36-46); Hemoglobin 7.3 g/dL (12.0-16.0); Lymphocytes Absolute Auto 1900 /uL (1100-4500); Lymphocytes Percent Auto 13.2 % (25-40); Mean Corpuscular HGB Conc 34.7 % (30-36); Mean Corpuscular Hemoglobin 30.9 PG (26-34); Monocytes Absolute Auto 900 /uL (0-900); Neutrophils Absolute Auto 11500 /uL (1500-7000); Neutrophils Percent Auto 80.5 % (50-75); Platelet Count 55 X10^3/uL (150-400); Red Blood Cell Count 2.37 X10^6/uL (4.0-5.2); Red Cell Distribution Width 14.6 % (11.6-14.8); White Blood Cell Count 14.3 X10^3/uL (4.5-11.0)
[2021-01-31 05:36] LABS: Haptoglobin 27 mg/dL (33-278)
--- NOTE | 2021-02-08 11:32 | CM.SWNOTE ---
CPS Referral 02.08.21 Spoke w/Dr Conti this morning who questioned safety of the 3 children under this mom's custody. According to notes these children would be Taj (10) [place] (6) and Loren (4). Carolina missed scheduled outpatient appt w/ Dr Conti and her triage nurse placed call to home number. According to Dr Conti- outreach team member spoke w/a school aged child that sounded much older than stated age and spoke, on this phone call, as if he was the adult taking care of his mother and his siblings, Carolina was said to be sleeping. Dr Conti concerned about children's safety today, with the knowledge that mom and partner came in to the highly intoxicated before C section , mom was 32 weeks , mom and baby transferred for higher level of care. Baby still on life support, mom left AM recently This PHARMACEUTICAL ASSISTANT requested that vice president of instruction place a call to CPS to voice concerns, this PHARMACEUTICAL ASSISTANT also placed call to CPS to relay Dr Conti' concerns to P# Intake number #[id number] HELENA [place]
== END 2021-01-30 18:45 | disposition short-term general hospital (02) | DRG 540 ==
PROVIDERS: Obstetrics & Gynecology; Admitting Provider Family Medicine; Referring Provider Family Medicine; Visit Provider Obstetrics & Gynecology
PROC: 10D00Z1 Extraction of Products of Conception, Low, Open Approach (ICD-10-PCS; CPT 59514; principal; 2021-01-28 16:30)
DX: O45.023 Premature separation of placenta with disseminated intravascular coagulation, third trimester (principal); O99.12 Other diseases of the blood and blood-forming organs and certain disorders involving the immune mechanism complicating childbirth; D69.6 Thrombocytopenia, unspecified; O60.14X0 Preterm labor third trimester with preterm delivery third trimester, not applicable or unspecified; O13.4 Gestational [pregnancy-induced] hypertension without significant proteinuria, complicating childbirth; O99.324 Drug use complicating childbirth; F15.90 Other stimulant use, unspecified, uncomplicated; F15.23 Other stimulant dependence with withdrawal; F12.90 Cannabis use, unspecified, uncomplicated; O99.334 Smoking (tobacco) complicating childbirth; Z3A.32 32 weeks gestation of pregnancy; Z37.0 Single live birth; O76 Abnormality in fetal heart rate and rhythm complicating labor and delivery; O99.02 Anemia complicating childbirth; D64.9 Anemia, unspecified; O75.89 Other specified complications of labor and delivery; R79.82 Elevated C-reactive protein (CRP); Z20.822 Contact with and (suspected) exposure to COVID-19; O09.33 Supervision of pregnancy with insufficient antenatal care, third trimester
CPT/HCPCS: 36415; 36430; 59514; 76819; 80053; 80055; 80305; 81001; 83010; 83615; 84550; 85025; 85045; 85384; 85610; 85730; 86803; 86850; 86870; 86900; 86901; 87077; 87086; 87186; 87389; 87635; 87653; 99222; C9803; P9016; G0379; J0330; J0690; J0702; J1100; J1940; J2590; J2704; J3010; P9041